=== PATIENT | male | born 2000 | race Caucasian/White ===

== ENCOUNTER → 2023-09-05 | Outpatient (CLI) | payer BC, SELFPAY ==
[2023-09-05 15:16] LABS: Absolute Lymphocyte Count 2.24 X10^3/uL (0.83-4.51); Absolute Neutrophil Count 4.3 X10^3/uL (2.0-7.7); Basophil# 0.04 X10^3/uL; Basophil% 0.6 % (0-1); Eosinophil# 0.08 X10^3/uL; Eosinophils% 1.1 % (0-5); Hematocrit 46.9 % (40-54); Hemoglobin 15.2 g/dL (13.0-16.5); Lymphocyte # 2.24 X10^3/ul (0.83-4.51); Lymphocyte % 31.2 % (19-41); Mean Corp Hgb Conc 32.4 g/dL (32-36); Mean Corpuscular Hgb 28.2 pg (27.0-32.0); Mean Platelet Vol. 8.8 fl (6.2-12.0); NRBC Flagged by Analyzer 0 % (0-5); Neutrophil # 4.29 X10^3/uL (2.7-7.7); Neutrophil % 59.8 % (47-70); Platelet Count 310 K/mm3 (150-450); RBC Distribution Width CV 12.3 % (11.6-14.6); Red Blood Count 5.39 M/mm3 (4.6-6.2); White Blood Count 7.2 K/mm3 (4.4-11.0)
[2023-09-05 15:39] LABS: Erythrocyte Sedimentation Rate 4 mm/hr (0-20)
[2023-09-05 15:50] LABS: ALB/GLOB Ratio 1.1 RATIO (0.9-2.4); AST(SGOT) 10 U/L (15-37); Alanine Aminotransfer ALT/SGPT 21 U/L (16-61); Albumin, Serum 4.3 g/dL (3.2-5.0); Alkaline Phosphatase 83 U/L (45-117); Anion Gap 4 (5-15); BUN 12 mg/dL (7-18); BUN/Creat Ratio 11.7 RATIO (10-20); CRP < 2.90 mg/L (0.0-3.0); Calcium,Total 9.1 mg/dL (8.5-10.1); Chloride 105 mmol/L (98-107); Creatinine, Serum 1.03 mg/dL (0.70-1.30); EST Glomerular Filtration Rate 96 mL/min (>60); Est Glom Filt Rate - Afr Amer 117 mL/min (>60); Globulin 3.8 g/dL (2.2-4.2); Glucose 89 mg/dL (74-106); Potassium 3.9 mmol/L (3.5-5.1); Protein, Total 8.1 g/dL (6.4-8.2); Rheumatoid Factor < 10.0 IU/mL (<15); Sodium Level 138 mmol/L (136-145)
[2023-09-05 17:12] LABS: Hepatitis B Surface Antibody Non-Reactive; Hepatitis B Surface Antigen Non-Reactive (Nonreactive); Hepatitis C Antibody Non-Reactive (Nonreactive)
[2023-09-08 14:08] LABS: CCP IgG Antibodies 5 units (0-19)
== END | disposition home or self-care (01) ==
LOC: MTLAB 14:02
PROVIDERS: PCP Family Medicine; Referring Provider Internal Medicine Rheumatology; Visit Provider Internal Medicine Rheumatology
DX: M06.4 Inflammatory polyarthropathy (principal)
CPT/HCPCS: 36415; 80053; 85025; 85652; 86140; 86200; 86431; 86706; 86803; 87340

== ENCOUNTER → 2023-10-22 | Outpatient (CLI) | payer BC, SELFPAY ==
[2023-10-22 17:39] LABS: Absolute Lymphocyte Count 2.86 X10^3/uL (0.83-4.51); Absolute Neutrophil Count 4.3 X10^3/uL (2.0-7.7); Basophil# 0.06 X10^3/uL; Basophil% 0.8 % (0-1); Eosinophil# 0.07 X10^3/uL; Eosinophils% 0.9 % (0-5); Hematocrit 45.7 % (40-54); Hemoglobin 15.3 g/dL (13.0-16.5); Lymphocyte # 2.86 X10^3/ul (0.83-4.51); Lymphocyte % 36.1 % (19-41); Mean Corp Hgb Conc 33.5 g/dL (32-36); Mean Corpuscular Hgb 28.3 pg (27.0-32.0); Mean Corpuscular Volume 84.6 fL (80-94); Mean Platelet Vol. 8.7 fl (6.2-12.0); Monocyte# 0.63 X10^3/uL; NRBC Flagged by Analyzer 0 % (0-5); Neutrophil # 4.28 X10^3/uL (2.7-7.7); Neutrophil % 53.9 % (47-70); Platelet Count 307 K/mm3 (150-450); RBC Distribution Width CV 12.3 % (11.6-14.6); RBC Distribution Width SD 37.4 fl (35.1-43.9); White Blood Count 7.9 K/mm3 (4.4-11.0)
[2023-10-22 18:01] LABS: ALB/GLOB Ratio 1.2 RATIO (0.9-2.4); AST(SGOT) 23 U/L (15-37); Alanine Aminotransfer ALT/SGPT 24 U/L (16-61); Albumin, Serum 4.3 g/dL (3.2-5.0); Alkaline Phosphatase 73 U/L (45-117); Anion Gap 8 (5-15); BUN 12 mg/dL (7-18); BUN/Creat Ratio 13.1 RATIO (10-20); Calcium,Total 8.8 mg/dL (8.5-10.1); Chloride 101 mmol/L (98-107); Creatinine, Serum 0.92 mg/dL (0.70-1.30); EST Glomerular Filtration Rate 110 mL/min (>60); Est Glom Filt Rate - Afr Amer 133 mL/min (>60); Globulin 3.5 g/dL (2.2-4.2); Glucose 73 mg/dL (74-106); Potassium 3.7 mmol/L (3.5-5.1); Protein, Total 7.8 g/dL (6.4-8.2); Sodium Level 138 mmol/L (136-145)
== END | disposition home or self-care (01) ==
PROVIDERS: PCP Family Medicine; Referring Provider Internal Medicine Rheumatology; Visit Provider Internal Medicine Rheumatology
DX: M06.4 Inflammatory polyarthropathy (principal); Z79.899 Other long term (current) drug therapy
CPT/HCPCS: 36415; 80053; 85025

== ENCOUNTER → 2024-02-16 | Outpatient (CLI) | payer BC, SELFPAY ==
[2024-02-16 17:43] LABS: Absolute Lymphocyte Count 2.73 X10^3/uL (0.83-4.51); Absolute Neutrophil Count 3.6 X10^3/uL (2.0-7.7); Basophil# 0.04 X10^3/uL; Basophil% 0.6 % (0-1); Eosinophil# 0.06 X10^3/uL; Eosinophils% 0.9 % (0-5); Hematocrit 43.6 % (40-54); Hemoglobin 14.8 g/dL (13.0-16.5); Lymphocyte # 2.73 X10^3/ul (0.83-4.51); Lymphocyte % 39.1 % (19-41); Mean Corp Hgb Conc 33.9 g/dL (32-36); Mean Corpuscular Hgb 29.5 pg (27.0-32.0); Mean Corpuscular Volume 86.9 fL (80-94); Mean Platelet Vol. 8.6 fl (6.2-12.0); Monocyte# 0.57 X10^3/uL; Monocyte% 8.2 % (0-10); NRBC Flagged by Analyzer 0 % (0-5); Neutrophil # 3.58 X10^3/uL (2.7-7.7); Neutrophil % 51.1 % (47-70); Platelet Count 287 K/mm3 (150-450); RBC Distribution Width CV 12.7 % (11.6-14.6); RBC Distribution Width SD 40.3 fl (35.1-43.9); Red Blood Count 5.02 M/mm3 (4.6-6.2)
[2024-02-16 17:52] LABS: ALB/GLOB Ratio 1.2 RATIO (0.9-2.4); AST(SGOT) 19 U/L (15-37); Alanine Aminotransfer ALT/SGPT 21 U/L (16-61); Albumin, Serum 4.3 g/dL (3.2-5.0); Alkaline Phosphatase 72 U/L (45-117); Anion Gap 7 (5-15); BUN 14 mg/dL (7-18); BUN/Creat Ratio 14.5 RATIO (10-20); Calcium,Total 9.3 mg/dL (8.5-10.1); Chloride 101 mmol/L (98-107); Creatinine, Serum 0.96 mg/dL (0.70-1.30); EST Glomerular Filtration Rate 104 mL/min (>60); Est Glom Filt Rate - Afr Amer 125 mL/min (>60); Globulin 3.5 g/dL (2.2-4.2); Glucose 81 mg/dL (74-106); Protein, Total 7.8 g/dL (6.4-8.2); Sodium Level 138 mmol/L (136-145)
== END | disposition home or self-care (01) ==
LOC: MTLAB 16:03
PROVIDERS: PCP Family Medicine; Referring Provider Internal Medicine Rheumatology; Visit Provider Internal Medicine Rheumatology
DX: M06.4 Inflammatory polyarthropathy (principal); Z79.899 Other long term (current) drug therapy
CPT/HCPCS: 36415; 80053; 85025

== ENCOUNTER → 2024-04-07 | Outpatient (CLI) | payer BC, SELFPAY ==
[2024-04-07 17:30] LABS: Absolute Lymphocyte Count 2.71 X10^3/uL (0.83-4.51); Absolute Neutrophil Count 3.2 X10^3/uL (2.0-7.7); Basophil# 0.06 X10^3/uL; Basophil% 0.9 % (0-1); Eosinophil# 0.07 X10^3/uL; Eosinophils% 1.1 % (0-5); Hematocrit 42.5 % (40-54); Hemoglobin 14.3 g/dL (13.0-16.5); Lymphocyte # 2.71 X10^3/ul (0.83-4.51); Lymphocyte % 40.9 % (19-41); Mean Corp Hgb Conc 33.6 g/dL (32-36); Mean Corpuscular Hgb 29.4 pg (27.0-32.0); Mean Corpuscular Volume 87.3 fL (80-94); Mean Platelet Vol. 8.7 fl (6.2-12.0); Monocyte# 0.56 X10^3/uL; Monocyte% 8.4 % (0-10); NRBC Flagged by Analyzer 0 % (0-5); Neutrophil # 3.22 X10^3/uL (2.7-7.7); Neutrophil % 48.5 % (47-70); Platelet Count 287 K/mm3 (150-450); RBC Distribution Width CV 12.2 % (11.6-14.6); RBC Distribution Width SD 39.1 fl (35.1-43.9); Red Blood Count 4.87 M/mm3 (4.6-6.2); White Blood Count 6.6 K/mm3 (4.4-11.0)
[2024-04-07 18:00] LABS: ALB/GLOB Ratio 1.3 RATIO (0.9-2.4); AST(SGOT) 13 U/L (15-37); Alanine Aminotransfer ALT/SGPT 20 U/L (16-61); Albumin, Serum 4.3 g/dL (3.2-5.0); Alkaline Phosphatase 67 U/L (45-117); Anion Gap 5 (5-15); BUN 14 mg/dL (7-18); BUN/Creat Ratio 14.3 RATIO (10-20); Calcium,Total 9.2 mg/dL (8.5-10.1); Chloride 103 mmol/L (98-107); Creatinine, Serum 0.98 mg/dL (0.70-1.30); EST Glomerular Filtration Rate 102 mL/min (>60); Est Glom Filt Rate - Afr Amer 123 mL/min (>60); Globulin 3.2 g/dL (2.2-4.2); Glucose 78 mg/dL (74-106); Potassium 3.8 mmol/L (3.5-5.1); Protein, Total 7.5 g/dL (6.4-8.2); Sodium Level 139 mmol/L (136-145)
== END | disposition home or self-care (01) ==
PROVIDERS: PCP Family Medicine; Referring Provider Internal Medicine Rheumatology; Visit Provider Internal Medicine Rheumatology
DX: M06.4 Inflammatory polyarthropathy (principal); Z79.899 Other long term (current) drug therapy
CPT/HCPCS: 36415; 80053; 85025

== ENCOUNTER → 2024-07-06 | Outpatient (CLI) | payer BC, SELFPAY ==
[2024-07-06 17:41] LABS: Absolute Lymphocyte Count 2.21 X10^3/uL (0.83-4.51); Absolute Neutrophil Count 3.4 X10^3/uL (2.0-7.7); Basophil# 0.05 X10^3/uL; Basophil% 0.8 % (0-1); Eosinophil# 0.05 X10^3/uL; Eosinophils% 0.8 % (0-5); Hematocrit 44.1 % (40-54); Hemoglobin 14.9 g/dL (13.0-16.5); Lymphocyte # 2.21 X10^3/ul (0.83-4.51); Lymphocyte % 35.4 % (19-41); Mean Corp Hgb Conc 33.8 g/dL (32-36); Mean Corpuscular Hgb 29.3 pg (27.0-32.0); Mean Corpuscular Volume 86.8 fL (80-94); Mean Platelet Vol. 8.6 fl (6.2-12.0); Monocyte# 0.52 X10^3/uL; Monocyte% 8.3 % (0-10); NRBC Flagged by Analyzer 0 % (0-5); Neutrophil # 3.41 X10^3/uL (2.7-7.7); Neutrophil % 54.5 % (47-70); Platelet Count 282 K/mm3 (150-450); RBC Distribution Width CV 12.7 % (11.6-14.6); RBC Distribution Width SD 39.9 fl (35.1-43.9); Red Blood Count 5.08 M/mm3 (4.6-6.2); White Blood Count 6.3 K/mm3 (4.4-11.0)
[2024-07-06 17:59] LABS: ALB/GLOB Ratio 1.1 RATIO (0.9-2.4); AST(SGOT) 19 U/L (15-37); Alanine Aminotransfer ALT/SGPT 22 U/L (16-61); Albumin, Serum 4.1 g/dL (3.2-5.0); Alkaline Phosphatase 71 U/L (45-117); Anion Gap 6 (5-15); BUN 14 mg/dL (7-18); BUN/Creat Ratio 12.8 RATIO (10-20); Calcium,Total 9.1 mg/dL (8.5-10.1); Chloride 105 mmol/L (98-107); Creatinine, Serum 1.09 mg/dL (0.70-1.30); EST Glomerular Filtration Rate 90 mL/min (>60); Est Glom Filt Rate - Afr Amer 108 mL/min (>60); Globulin 3.6 g/dL (2.2-4.2); Glucose 83 mg/dL (74-106); Potassium 3.8 mmol/L (3.5-5.1); Protein, Total 7.7 g/dL (6.4-8.2); Sodium Level 141 mmol/L (136-145)
== END | disposition home or self-care (01) ==
LOC: MTLAB 15:52
PROVIDERS: PCP Family Medicine; Referring Provider Internal Medicine Rheumatology; Visit Provider Internal Medicine Rheumatology
DX: M06.4 Inflammatory polyarthropathy (principal); Z79.899 Other long term (current) drug therapy
CPT/HCPCS: 36415; 80053; 85025

== ENCOUNTER → 2024-10-01 | Outpatient (CLI) | payer BC, SELFPAY ==
[2024-10-01 17:32] LABS: Absolute Lymphocyte Count 2.44 X10^3/uL (0.83-4.51); Absolute Neutrophil Count 3.2 X10^3/uL (2.0-7.7); Basophil# 0.03 X10^3/uL; Basophil% 0.5 % (0-1); Eosinophil# 0.08 X10^3/uL; Eosinophils% 1.3 % (0-5); Hematocrit 43.4 % (40-54); Hemoglobin 14.3 g/dL (13.0-16.5); Lymphocyte # 2.44 X10^3/ul (0.83-4.51); Lymphocyte % 38.8 % (19-41); Mean Corp Hgb Conc 32.9 g/dL (32-36); Mean Corpuscular Hgb 28.9 pg (27.0-32.0); Mean Corpuscular Volume 87.9 fL (80-94); Mean Platelet Vol. 9.2 fl (6.2-12.0); Monocyte# 0.58 X10^3/uL; Monocyte% 9.2 % (0-10); NRBC Flagged by Analyzer 0 % (0-5); Neutrophil # 3.15 X10^3/uL (2.7-7.7); Platelet Count 266 K/mm3 (150-450); RBC Distribution Width CV 12.4 % (11.6-14.6); RBC Distribution Width SD 39.8 fl (35.1-43.9); Red Blood Count 4.94 M/mm3 (4.6-6.2); White Blood Count 6.3 K/mm3 (4.4-11.0)
[2024-10-01 17:57] LABS: ALB/GLOB Ratio 1.2 RATIO (0.9-2.4); AST(SGOT) 11 U/L (15-37); Alanine Aminotransfer ALT/SGPT 21 U/L (16-61); Albumin, Serum 4.2 g/dL (3.2-5.0); Alkaline Phosphatase 68 U/L (45-117); Anion Gap 4 (5-15); BUN 11 mg/dL (7-18); BUN/Creat Ratio 10.8 RATIO (10-20); Calcium,Total 9.3 mg/dL (8.5-10.1); Chloride 104 mmol/L (98-107); Creatinine, Serum 1.02 mg/dL (0.70-1.30); EST Glomerular Filtration Rate 97 mL/min (>60); Est Glom Filt Rate - Afr Amer 117 mL/min (>60); Globulin 3.4 g/dL (2.2-4.2); Glucose 79 mg/dL (74-106); Potassium 3.9 mmol/L (3.5-5.1); Protein, Total 7.6 g/dL (6.4-8.2); Sodium Level 137 mmol/L (136-145)
== END | disposition home or self-care (01) ==
LOC: MTLAB 15:23
PROVIDERS: PCP Family Medicine; Referring Provider Internal Medicine Rheumatology; Visit Provider Internal Medicine Rheumatology
DX: M06.4 Inflammatory polyarthropathy (principal); Z79.899 Other long term (current) drug therapy
CPT/HCPCS: 36415; 80053; 85025

== ENCOUNTER → 2024-12-27 | Outpatient (CLI) | payer BC, SELFPAY ==
[2024-12-27 15:34] LABS: Absolute Lymphocyte Count 2.12 X10^3/uL (0.83-4.51); Absolute Neutrophil Count 4.7 X10^3/uL (2.0-7.7); Basophil# 0.05 X10^3/uL; Basophil% 0.7 % (0-1); Eosinophil# 0.06 X10^3/uL; Eosinophils% 0.8 % (0-5); Hematocrit 42.6 % (40-54); Hemoglobin 14.7 g/dL (13.0-16.5); Lymphocyte # 2.12 X10^3/ul (0.83-4.51); Lymphocyte % 27.8 % (19-41); Mean Corp Hgb Conc 34.5 g/dL (32-36); Mean Corpuscular Hgb 29.9 pg (27.0-32.0); Mean Corpuscular Volume 86.6 fL (80-94); Mean Platelet Vol. 8.5 fl (6.2-12.0); Monocyte# 0.67 X10^3/uL; Monocyte% 8.8 % (0-10); NRBC Flagged by Analyzer 0 % (0-5); Neutrophil % 61.5 % (47-70); Platelet Count 323 K/mm3 (150-450); RBC Distribution Width CV 12.4 % (11.6-14.6); RBC Distribution Width SD 39.3 fl (35.1-43.9); Red Blood Count 4.92 M/mm3 (4.6-6.2); White Blood Count 7.6 K/mm3 (4.4-11.0)
[2024-12-27 16:12] LABS: ALB/GLOB Ratio 1.2 RATIO (0.9-2.4); AST(SGOT) 30 U/L (15-37); Alanine Aminotransfer ALT/SGPT 42 U/L (16-61); Albumin, Serum 4.2 g/dL (3.2-5.0); Alkaline Phosphatase 84 U/L (45-117); Anion Gap 8 (5-15); BUN 10 mg/dL (7-18); BUN/Creat Ratio 9.3 RATIO (10-20); Calcium,Total 9.2 mg/dL (8.5-10.1); Chloride 102 mmol/L (98-107); Creatinine, Serum 1.08 mg/dL (0.70-1.30); EST Glomerular Filtration Rate 90 mL/min (>60); Est Glom Filt Rate - Afr Amer 109 mL/min (>60); Globulin 3.6 g/dL (2.2-4.2); Glucose 90 mg/dL (74-106); Potassium 3.8 mmol/L (3.5-5.1); Protein, Total 7.8 g/dL (6.4-8.2); Sodium Level 138 mmol/L (136-145)
== END | disposition home or self-care (01) ==
PROVIDERS: PCP Family Medicine; Referring Provider Internal Medicine Rheumatology; Visit Provider Internal Medicine Rheumatology
DX: M06.4 Inflammatory polyarthropathy (principal); Z79.899 Other long term (current) drug therapy
CPT/HCPCS: 36415; 80053; 85025

== ENCOUNTER → 2025-03-25 | Outpatient (CLI) | payer BC, SELFPAY ==
[2025-03-25 17:49] LABS: Absolute Neutrophil Count 3.2 X10^3/uL (2.0-7.7); Basophil# 0.05 X10^3/uL; Basophil% 0.8 % (0-1); Eosinophil# 0.07 X10^3/uL; Eosinophils% 1.1 % (0-5); Hematocrit 42.3 % (40-54); Hemoglobin 14.5 g/dL (13.0-16.5); Lymphocyte % 40.1 % (19-41); Mean Corp Hgb Conc 34.3 g/dL (32-36); Mean Corpuscular Volume 87.4 fL (80-94); Mean Platelet Vol. 9.1 fl (6.2-12.0); Monocyte% 9.2 % (0-10); NRBC Flagged by Analyzer 0 % (0-5); Neutrophil # 3.16 X10^3/uL (2.7-7.7); Neutrophil % 48.6 % (47-70); Platelet Count 284 K/mm3 (150-450); RBC Distribution Width CV 12.2 % (11.6-14.6); RBC Distribution Width SD 38.8 fl (35.1-43.9); Red Blood Count 4.84 M/mm3 (4.6-6.2); White Blood Count 6.5 K/mm3 (4.4-11.0)
[2025-03-25 18:15] LABS: ALB/GLOB Ratio 1.8 RATIO (0.9-2.4); AST(SGOT) 20 U/L (<=37); Alanine Aminotransfer ALT/SGPT 20 U/L (<=46); Albumin, Serum 4.8 g/dL (3.5-5.0); Alkaline Phosphatase 67 U/L (40-129); Anion Gap 12 (5-15); BUN 14 mg/dL (4-19); BUN/Creat Ratio 13.1 RATIO (10-20); Calcium,Total 9.7 mg/dL (7.6-11.0); Carbon Dioxide 27.3 mmol/L (21.0-32.0); Chloride 101 mmol/L (98-108); Creatinine, Serum 1.08 mg/dL (0.70-1.20); EST Glomerular Filtration Rate 99 (>60); Globulin 2.7 g/dL (2.2-4.2); Glucose 68 mg/dL (70-99); Protein, Total 7.4 g/dL (5.9-8.4); Sodium Level 141 mmol/L (133-145); Total Bilirubin 0.47 mg/dL (0.00-1.30)
== END | disposition home or self-care (01) ==
LOC: MTLAB 15:20
PROVIDERS: PCP Family Medicine; Referring Provider Internal Medicine Rheumatology; Visit Provider Internal Medicine Rheumatology
DX: M06.4 Inflammatory polyarthropathy (principal); Z79.899 Other long term (current) drug therapy
CPT/HCPCS: 36415; 80053; 85025

== ENCOUNTER → 2025-06-21 | Outpatient (CLI) | payer BC, SELFPAY ==
[2025-06-21 18:13] LABS: Hematocrit 42.9 % (40-54); Hemoglobin 14.7 g/dL (13.0-16.5); Immature Granulocytes Count 0.010 X10^3/uL (0.0-0.0); Mean Corp Hgb Conc 34.3 g/dL (32-36); Mean Corpuscular Volume 86.7 fL (80-94); Mean Platelet Vol. 9.1 fl (6.2-12.0); NRBC Flagged by Analyzer 0 % (0-5); Platelet Count 292 K/mm3 (150-450); RBC Distribution Width CV 12.4 % (11.6-14.6); RBC Distribution Width SD 39.5 fl (35.1-43.9); Red Blood Count 4.95 M/mm3 (4.6-6.2); White Blood Count 6.2 K/mm3 (4.4-11.0)
[2025-06-21 18:48] LABS: AST(SGOT) 30 U/L (<=37); Alanine Aminotransfer ALT/SGPT 40 U/L (<=46); Albumin, Serum 4.6 g/dL (3.5-5.0); Alkaline Phosphatase 66 U/L (40-129); Anion Gap 12 (5-15); BUN 12 mg/dL (4-19); BUN/Creat Ratio 11.1 RATIO (10-20); Calcium,Total 9.6 mg/dL (7.6-11.0); Carbon Dioxide 27.0 mmol/L (21.0-32.0); Chloride 102 mmol/L (98-108); Globulin 2.7 g/dL (2.2-4.2); Glucose 69 mg/dL (70-99); Potassium 4.3 mmol/L (3.3-5.1)
== END | disposition home or self-care (01) ==
LOC: MTLAB 14:26
PROVIDERS: PCP Family Medicine; Referring Provider Internal Medicine Rheumatology; Visit Provider Internal Medicine Rheumatology
DX: M06.4 Inflammatory polyarthropathy (principal); Z79.899 Other long term (current) drug therapy
CPT/HCPCS: 36415; 80053; 85025

== ENCOUNTER → 2025-09-16 | Outpatient (CLI) | payer BC, SELFPAY ==
--- OUTSIDE RECORDS SUMMARY | 2025-09-16 16:22 | XMS RPT_ITS | CCD ---
Author Organization [facility] Care Team Providers Care Angiographer Name Role Phone SHANICE SHARP MD Attending Unavailable SHANICE SHARP MD Primary Care Unavailable SHANICE SHARP MD Admitting Unavailable Nadine ART Consulting Unavailable PROVIDER, UNKNOWN Consulting Unavailable PROVIDER, UNKNOWN Consulting Unavailable PROVIDER, UNKNOWN Consulting Unavailable COCO WELLS Consulting Unavailable GINA BRADSHAW DO Attending Unavailable ESCGINA LOWRY DO Primary Care Unavailable GINA BRADSHAW DO Admitting Unavailable PROVIDER, UNKNOWN Consulting Unavailable PROVIDER, UNKNOWN Consulting Unavailable PROVIDER, UNKNOWN Consulting Unavailable Fiona JALLOH, Dr. Vasquez Primary Care Provider [phone] Dr. Shanice Sharp MD Attending Provider Dr. Shanice Sharp MD Referring Provider Shanice Sharp Attending Unavailable Shanice Sharp Referring Unavailable Christina Art Primary Care Unavailable Shanice Sharp Attending Unavailable Shanice Sharp Referring Unavailable Christina Art Primary Care Unavailable Shanice Sharp Attending Unavailable Shanice Sharp Referring Unavailable Christina Art Primary Care Unavailable Shanice Sharp Attending Unavailable Shanice Sharp Referring Unavailable Christina Art Primary Care Unavailable Shanice Sharp Attending Unavailable Shanice Sharp Referring Unavailable Christina Art Primary Care Unavailable Problems Problem Classification Problem Date Documented Da te Episodic/Chronic Other aftercare (3 sources) Other predatory animal exterminator (current) drug therapy; Translations: [Other predatory animal exterminator (current) drug therapy] Onset: 12-22-2023 Episodic Rheumatoid arthritis and related disease (2 sources) Inflammatory polyarthropathy; Translations: [Inflammatory polyarthropathy] Onset: 12-22-2023 Chronic Results Test Name Value Interpretation Reference Range Facility Absolute lymphocyte countOrd ered By: Shanice Sharp on 06-21-2025 Lymphocytes Auto (Unsp spec) [#/Vol] 2.30 10*3/uL 0.83-4.51 [facility] Absolute neutrophil countOrd ered By: Shanice Sharp on 06-21-2025 Neutrophils (Bld) [#/Vol] 3.3 10*3/uL 2.0-7.7 [facility] Anion gap in Serum or Plasma Ordered By: Shanice Sharp on 06-21-2025 Anion gap [Moles/Vol] 12 mmol/L 5- [facility] Automated lymphocyte count a s percentage of total leukocytesOrdered By: Shanice Sharp on 06-21-2025 Lymphocytes/100 WBC Auto (Unsp spec) 37.2 % - [facility] BUN/creatinine ratioOrdered By: Shanicemert Sharp on 06-21-2025 Urea nitrogen/Creatinine [Mass ratio] 11.1 mg/mg 10- [facility] Basophil percentageOrdered B y: Shanice Sharp on 06-21-2025 Basophils/100 WBC (Bld) 0.6 % 0-1 [facility] Bilirubin, totalOrdered By: Shanice Sharp on 06-21-2025 Bilirubin [Mass/Vol] 0.51 mg/dL 0.00-1.30 [facility] CBC W/Diff, Automatedon 06-01 Absolute Lymph 2.30 X10 3/uL Normal 0.83-4.51 [facility] Comment on above: Performed By: #### L 500.4050, L100.0100 #### [facility] [address] [place], [address] Absolute Neut 3.3 X10 3/uL Normal 2.0-7.7 [facility] Comment on above: Performed By: #### L 500.4050, L100.0100 #### [facility] [address] [place], [address] Basophils/100 WBC (Bld) 0.6 % Normal 0-1 [facility] Comment on above: Performed By: #### L 500.4050, L100.0100 #### [facility] [address] [place], [address] Eosinophils/100 WBC (Bld) 0.6 % Normal 0-5 [facility] Comment on above: Performed By: #### L 500.4050, L100.0100 #### [facility] [address] [place], [address] Erythrocyte distribution width (RBC) [Ratio] 12.4 % Normal 11.6-14.6 [facility] Comment on above: Performed By: #### L 500.4050, L100.0100 #### [facility] [address] [place], [address] Hematocrit (Bld) [Volume fraction] 42.9 % Normal 40-54 [facility] Comment on above: Performed By: #### L 500.4050, L100.0100 #### [facility] [address] [place], [address] Hemoglobin (Bld) [Mass/Vol] 14.7 g/dL Normal 13.0-16.5 [facility] Comment on above: Performed By: #### L 500.4050, L100.0100 #### [facility] [address] [place], [address] IG% 0.200 Normal 0.0-0.9 [facility] Comment on above: Result Comment: IG% - Immature Granulocytes (promyelocytes, myelocytes and metamyelocytes) > 1% indicates that a LEFT SHIFT is Present. Performed By: #### L 500.4050, L100.0100 #### [facility] [address] [place], [address] Lymphocytes/100 WBC (Bld) 37.2 % Normal 19-41 [facility] Comment on above: Performed By: #### L 500.4050, L100.0100 #### [facility] [address] [place], [address] MCH (RBC) [Entitic mass] 29.7 pg Normal 27.0-32.0 [facility] Comment on above: Performed By: #### L 500.4050, L100.0100 #### [facility] [address] [place], [address] MCHC (RBC) [Mass/Vol] 34.3 g/dL Normal 32-36 [facility] Comment on above: Performed By: #### L 500.4050, L100.0100 #### [facility] [address] [place], [address] MCV (RBC) [Entitic vol] 86.7 fL Normal 80-94 [facility] Comment on above: Performed By: #### L 500.4050, L100.0100 #### [facility] [address] [place], [address] Monocytes/100 WBC (Bld) 7.6 % Normal 0-10 [facility] Comment on above: Performed By: #### L 500.4050, L100.0100 #### [facility] [address] [place], [address] Neutrophils/100 WBC (Bld) 53.8 % Normal 47-70 [facility] Comment on above: Performed By: #### L 500.4050, L100.0100 #### [facility] [address] [place], [address] Nucleated RBC (Bld) [#/Vol] 0 10*3/uL Normal 0-5 [facility] Comment on above: Performed By: #### L 500.4050, L100.0100 #### [facility] [address] [place], [address] Platelet mean volume (Bld) [Entitic vol] 9.1 fL Normal 6.2-12.0 [facility] Comment on above: Performed By: #### L 500.4050, L100.0100 #### [facility] [address] [place], [address] Platelets (Bld) [#/Vol] 292 10*3/uL Normal 150-450 [facility] Comment on above: Performed By: #### L 500.4050, L100.0100 #### [facility] [address] [place], [address] RBC (Bld) [#/Vol] 4.95 10*6/uL Normal 4.6-6.2 [facility] Comment on above: Performed By: #### L 500.4050, L100.0100 #### [facility] [address] [place], [address] RDW SD 39.5 fl Normal 35.1-43.9 [facility] Comment on above: Performed By: #### L 500.4050, L100.0100 #### [facility] [address] [place], [address] WBC (Bld) [#/Vol] 6.2 10*3/uL Normal 4.4-11.0 [facility] Comment on above: Performed By: #### L 500.4050, L100.0100 #### [facility] [address] [place], [address] Carbon dioxide, total [Moles /volume] in Central venous bloodOrdered By: Shanice Sharp on 06-21-2025 CO2 [Moles/Vol] 27.0 mmol/L 21.0-32.0 [facility] Chloride assayOrdered By: Douglas Sharp on 06-21-2025 Chloride [Moles/Vol] 102 mmol/L 98-108 [facility] Comprehensive Metabolic Prof ilon 06-21-2025 Albumin [Mass/Vol] 4.6 g/dL Normal 3.5-5.0 [facility] Comment on above: Performed By: #### L 500.4050, L100.0100 #### [facility] [address] [place], [address] Albumin/Globulin [Mass ratio] 1.7 {ratio} Normal 0.9-2.4 [facility] Comment on above: Performed By: #### L 500.4050, L100.0100 #### [facility] [address] [place], [address] ALK PHOS 66 U/L Normal 40-129 [facility] Comment on above: Performed By: #### L 500.4050, L100.0100 #### [facility] [address] [place], [address] ALT [Catalytic activity/Vol] 40 U/L Normal <=46 [facility] Comment on above: Performed By: #### L 500.4050, L100.0100 #### [facility] [address] [place], [address] AST [Catalytic activity/Vol] 30 U/L Normal <=37 [facility] Comment on above: Performed By: #### L 500.4050, L100.0100 #### [facility] [address] [place], [address] Bilirubin [Mass/Vol] 0.51 mg/dL Normal 0.00-1.30 [facility] Comment on above: Performed By: #### L 500.4050, L100.0100 #### [facility] [address] [place], [address] BUN/CRE 11.1 RATIO Normal 10-20 [facility] Comment on above: Performed By: #### L 500.4050, L100.0100 #### [facility] [address] [place], [address] Calcium [Mass/Vol] 9.6 mg/dL Normal 7.6-11.0 [facility] Comment on above: Performed By: #### L 500.4050, L100.0100 #### [facility] [address] [place], [address] Chloride [Moles/Vol] 102 mmol/L Normal 98-108 [facility] Comment on above: Performed By: #### L 500.4050, L100.0100 #### [facility] [address] [place], [address] CO2 [Moles/Vol] 27.0 mmol/L Normal 21.0-32.0 [facility] Comment on above: Performed By: #### L 500.4050, L100.0100 #### [facility] [address] [place], [address] Creatinine [Mass/Vol] 1.11 mg/dL Normal 0.70-1.20 [facility] Comment on above: Performed By: #### L 500.4050, L100.0100 #### [facility] [address] [place], [address] GAP 12 Normal 5-15 [facility] Comment on above: Performed By: #### L 500.4050, L100.0100 #### [facility] [address] [place], [address] GFR/1.73 sq M.predicted among non-blacks MDRD (S/P/Bld) [Vol rate/Area] 96 mL/min/{1.73_m2} Normal >60 [facility] Comment on above: Result Comment: mL/m in/1.73m2 CKD-EPI Creatinine Equation (2020) Performed By: #### L 500.4050, L100.0100 #### [facility] [address] [place], [address] Globulin (S) [Mass/Vol] 2.7 g/dL Normal 2.2-4.2 [facility] Comment on above: Performed By: #### L 500.4050, L100.0100 #### [facility] [address] [place], [address] Glucose [Mass/Vol] 69 mg/dL Low 70-99 [facility] Comment on above: Performed By: #### L 500.4050, L100.0100 #### [facility] [address] [place], [address] Potassium [Moles/Vol] 4.3 mmol/L Normal 3.3-5.1 [facility] Comment on above: Performed By: #### L 500.4050, L100.0100 #### [facility] [address] [place], [address] Sodium [Moles/Vol] 140 mmol/L Normal 133-145 [facility] Comment on above: Performed By: #### L 500.4050, L100.0100 #### [facility] [address] [place], [address] T PROT 7.3 g/dL Normal 5.9-8.4 [facility] Comment on above: Performed By: #### L 500.4050, L100.0100 #### [facility] [address] [place], [address] Urea nitrogen [Mass/Vol] 12 mg/dL Normal 4-19 [facility] Comment on above: Performed By: #### L 500.4050, L100.0100 #### [facility] [address] [place], [address] Eosinophil percentageOrdered By: Shanice Sharp on 06-21-2025 Eosinophils/100 WBC (Bld) 0.6 % 0-5 [facility] Erythrocyte distribution wid th ratioOrdered By: Shanice Sharp on 06-21-2025 Erythrocyte distribution width (RBC) [Ratio] 12.4 % 11.6-14.6 [facility] Erythrocyte distribution wid th standard deviationOrdered By: Shanice Sharp on 06-21-2025 Erythrocyte distribution width (RBC) [Ratio] 39.5 fl 35.1-43.9 [facility] Glomerular filtration rate ( GFR) estimation/1.73 sq m using serum, plasma, or whole bOrdered By: Shanice Sharp on 06-21-2025 GFR/1.73 sq M.predicted among non-blacks MDRD (S/P/Bld) [Vol rate/Area] 96 mL/min/{1.73_m2} >60 [facility] Comment on above: mL/min/1.73m2 CKD-EP I Creatinine Equation (2020) Hematocrit Auto (Bld) [Volum e fraction]Ordered By: Shanice Sharp on 06-21-2025 Hematocrit (Bld) [Volume fraction] 42.9 % 40-54 [facility] Hemoglobin measurementOrdere d By: Shanice Sharp on 06-21-2025 Hemoglobin (Bld) [Mass/Vol] 14.7 g/dL 13.0-16.5 [facility] Immature granulocytes/100 WB C Auto (Bld)Ordered By: Shanice Sharp on 06-21-2025 Immature granulocytes/100 WBC (Bld) 0.200 % 0.0-0.9 [facility] Comment on above: IG% - Immature Granu locytes (promyelocytes, myelocytes and metamyelocytes) > 1% indicates that a LEFT SHIFT is Present. Laboratory - Chemistry and C hemistry - challengeOrdered By: Shanice Sharp on 06-21-2025 AST [Catalytic activity/Vol] 30 U/L <38 [facility] MCV (mean corpuscular volume ) determinationOrdered By: Shanice Sharp on 06-21-2025 MCV (RBC) [Entitic vol] 86.7 fL 80-94 [facility] Mean corpuscular hemoglobin (MCH) determinationOrdered By: Shanice Sharp on 06-21-2025 MCH (RBC) [Entitic mass] 29.7 pg 27.0-32.0 [facility] Mean corpuscular hemoglobin concentration (MCHC) determinationOrdered By: Shanice Sharp on 06-21-2025 MCHC (RBC) [Mass/Vol] 34.3 g/dL 32-36 [facility] Mean platelet volume determi nationOrdered By: Shanice Sharp on 06-21-2025 Platelet mean volume (Bld) [Entitic vol] 9.1 fL 6.2-12.0 [facility] Monocyte percentageOrdered B y: Shanice Sharp on 06-21-2025 Monocytes/100 WBC (Bld) 7.6 % 0-10 [facility] Neutrophil percentageOrdered By: Shanice Sharp on 06-21-2025 Neutrophils/100 WBC (Bld) 53.8 % 47-70 [facility] Nucleated red blood cell per centageOrdered By: Shanice Sharp on 06-21-2025 Nucleated RBC/100 WBC (Bld) [Ratio] 0 % 0-5 [facility] Platelet countOrdered By: Douglas Sharp on 06-21-2025 Platelets (Bld) [#/Vol] 292 10*3/uL 150-450 [facility] Potassium measurement (mass/ volume)Ordered By: Shanice Sharp on 06-21-2025 Potassium (Unsp spec) [Mass/Vol] 4.3 mmol/L 3.3-5.1 [facility] RBC Auto (Bld) [#/Vol]Ordere d By: Shanice Sharp on 06-21-2025 RBC (Bld) [#/Vol] 4.95 10*6/uL 4.6-6.2 [facility] Serum creatinine measurement (mass/volume)Ordered By: Shanice Sharp on 06-21-2025 Creatinine [Mass/Vol] 1.11 mg/dL 0.70-1.20 [facility] Serum globulin measurementOr dered By: Shanice Sharp on 06-21-2025 Globulin (S) [Mass/Vol] 2.7 g/dL 2.2-4.2 [facility] Serum glucose measurement (m ass/volume)Ordered By: Shanice Sharp on 06-21-2025 Glucose [Mass/Vol] 69 mg/dL Low 70-99 [facility] Serum or plasma alanine wolfe otransferase (ALT) measurementOrdered By: Shanice Sharp on 06-21-2025 ALT [Catalytic activity/Vol] 40 U/L <47 [facility] Serum or plasma albumin rob urement (mass/volume)Ordered By: Shanice Sharp on 06-21-2025 Albumin [Mass/Vol] 4.6 g/dL 3.5-5.0 [facility] Serum or plasma albumin/glob ulin mass ratioOrdered By: Shanice Sharp on 06-21-2025 Albumin/Globulin [Mass ratio] 1.7 {ratio} 0.9-2.4 [facility] Serum or plasma alkaline starla sphatase measurementOrdered By: Shanice Sharp on 06-21-2025 ALP [Catalytic activity/Vol] 66 U/L 40-129 [facility] Serum or plasma calcium rob urement (mass/volume)Ordered By: Shanice Sharp on 06-21-2025 Calcium [Mass/Vol] 9.6 mg/dL 7.6-11.0 [facility] Serum or plasma urea nitroge n measurement (mass/volume)Ordered By: Shanice Sharp on 06-21-2025 Urea nitrogen [Mass/Vol] 12 mg/dL 4-19 [facility] Sodium levelOrdered By: Bhaskar Sharp on 06-21-2025 Sodium [Moles/Vol] 140 mmol/L 133-145 [facility] Total proteinOrdered By: Awa Sharp on 06-21-2025 Protein [Mass/Vol] 7.3 g/dL 5.9-8.4 [facility] White blood cell (WBC) count Ordered By: Shanice Sharp on 06-21-2025 WBC (Bld) [#/Vol] 6.2 10*3/uL 4.4-11.0 [facility] Absolute lymphocyte countOrd ered By: Shanice Sharp on 03-25-2025 Lymphocytes Auto (Unsp spec) [#/Vol] 2.60 10*3/uL 0.83-4.51 [facility] Absolute neutrophil countOrd ered By: Shanice Sharp on 03-25-2025 Neutrophils (Bld) [#/Vol] 3.2 10*3/uL 2.0-7.7 [facility] Anion gap in Serum or Plasma Ordered By: Shanice Sharp on 03-25-2025 Anion gap [Moles/Vol] 12 mmol/L 5- [facility] Automated lymphocyte count a s percentage of total leukocytesOrdered By: Shanice Sharp on 03-25-2025 Lymphocytes/100 WBC Auto (Unsp spec) 40.1 % [facility] BUN/creatinine ratioOrdered By: Shanice Sharp on 03-25-2025 Urea nitrogen/Creatinine [Mass ratio] 13.1 mg/mg 10- [facility] Basophil percentageOrdered B y: Shanice Sharp on 03-25-2025 Basophils/100 WBC (Bld) 0.8 % 0-1 [facility] Bilirubin, totalOrdered By: Shanice Sharp on 03-25-2025 Bilirubin [Mass/Vol] 0.47 mg/dL 0.00-1.30 [facility] CBC W/Diff, Automatedon 03-02 Absolute Lymph 2.60 X10 3/uL Normal 0.83-4.51 [facility] Comment on above: Performed By: #### L 100.0100, L500.4050 #### [facility] [address] [place], [address] Absolute Neut 3.2 X10 3/uL Normal 2.0-7.7 [facility] Comment on above: Performed By: #### L 100.0100, L500.4050 #### [facility] [address] [place], [address] Basophils/100 WBC (Bld) 0.8 % Normal 0-1 [facility] Comment on above: Performed By: #### L 100.0100, L500.4050 #### [facility] [address] [place], [address] Eosinophils/100 WBC (Bld) 1.1 % Normal 0-5 [facility] Comment on above: Performed By: #### L 100.0100, L500.4050 #### [facility] [address] [place], [address] Erythrocyte distribution width (RBC) [Ratio] 12.2 % Normal 11.6-14.6 [facility] Comment on above: Performed By: #### L 100.0100, L500.4050 #### [facility] [address] [place], [address] Hematocrit (Bld) [Volume fraction] 42.3 % Normal 40-54 [facility] Comment on above: Performed By: #### L 100.0100, L500.4050 #### [facility] [address] [place], [address] Hemoglobin (Bld) [Mass/Vol] 14.5 g/dL Normal 13.0-16.5 [facility] Comment on above: Performed By: #### L 100.0100, L500.4050 #### [facility] [address] [place], [address] IG% 0.200 Normal 0.0-0.9 [facility] Comment on above: Result Comment: IG% - Immature Granulocytes (promyelocytes, myelocytes and metamyelocytes) > 1% indicates that a LEFT SHIFT is Present. Performed By: #### L 100.0100, L500.4050 #### [facility] [address] [place], [address] Lymphocytes/100 WBC (Bld) 40.1 % Normal 19-41 [facility] Comment on above: Performed By: #### L 100.0100, L500.4050 #### [facility] [address] [place], [address] MCH (RBC) [Entitic mass] 30.0 pg Normal 27.0-32.0 [facility] Comment on above: Performed By: #### L 100.0100, L500.4050 #### [facility] [address] [place], [address] MCHC (RBC) [Mass/Vol] 34.3 g/dL Normal 32-36 [facility] Comment on above: Performed By: #### L 100.0100, L500.4050 #### [facility] [address] [place], [address] MCV (RBC) [Entitic vol] 87.4 fL Normal 80-94 [facility] Comment on above: Performed By: #### L 100.0100, L500.4050 #### [facility] [address] [place], [address] Monocytes/100 WBC (Bld) 9.2 % Normal 0-10 [facility] Comment on above: Performed By: #### L 100.0100, L500.4050 #### [facility] [address] [place], [address] Neutrophils/100 WBC (Bld) 48.6 % Normal 47-70 [facility] Comment on above: Performed By: #### L 100.0100, L500.4050 #### [facility] [address] [place], [address] Nucleated RBC (Bld) [#/Vol] 0 10*3/uL Normal 0-5 [facility] Comment on above: Performed By: #### L 100.0100, L500.4050 #### [facility] [address] [place], [address] Platelet mean volume (Bld) [Entitic vol] 9.1 fL Normal 6.2-12.0 [facility] Comment on above: Performed By: #### L 100.0100, L500.4050 #### [facility] [address] [place], [address] Platelets (Bld) [#/Vol] 284 10*3/uL Normal 150-450 [facility] Comment on above: Performed By: #### L 100.0100, L500.4050 #### [facility] [address] [place], [address] RBC (Bld) [#/Vol] 4.84 10*6/uL Normal 4.6-6.2 [facility] Comment on above: Performed By: #### L 100.0100, L500.4050 #### [facility] [address] [place], [address] RDW SD 38.8 fl Normal 35.1-43.9 [facility] Comment on above: Performed By: #### L 100.0100, L500.4050 #### [facility] [address] [place], [address] WBC (Bld) [#/Vol] 6.5 10*3/uL Normal 4.4-11.0 [facility] Comment on above: Performed By: #### L 100.0100, L500.4050 #### [facility] [address] [place], [address] Carbon dioxide, total [Moles /volume] in Central venous bloodOrdered By: Shanice Sharp on 03-25-2025 CO2 [Moles/Vol] 27.3 mmol/L 21.0-32.0 [facility] Chloride assayOrdered By: Douglas Sharp on 03-25-2025 Chloride [Moles/Vol] 101 mmol/L 98-108 [facility] Comprehensive Metabolic Prof ilon 03-25-2025 Albumin [Mass/Vol] 4.8 g/dL Normal 3.5-5.0 [facility] Comment on above: Performed By: #### L 100.0100, L500.4050 #### [facility] [address] [place], [address] Albumin/Globulin [Mass ratio] 1.8 {ratio} Normal 0.9-2.4 [facility] Comment on above: Performed By: #### L 100.0100, L500.4050 #### [facility] [address] [place], [address] ALK PHOS 67 U/L Normal 40-129 [facility] Comment on above: Performed By: #### L 100.0100, L500.4050 #### [facility] [address] [place], [address] ALT [Catalytic activity/Vol] 20 U/L Normal <=46 [facility] Comment on above: Performed By: #### L 100.0100, L500.4050 #### [facility] [address] [place], [address] AST [Catalytic activity/Vol] 20 U/L Normal <=37 [facility] Comment on above: Performed By: #### L 100.0100, L500.4050 #### [facility] [address] [place], [address] Bilirubin [Mass/Vol] 0.47 mg/dL Normal 0.00-1.30 [facility] Comment on above: Performed By: #### L 100.0100, L500.4050 #### [facility] [address] [place], [address] BUN/CRE 13.1 RATIO Normal 10-20 [facility] Comment on above: Performed By: #### L 100.0100, L500.4050 #### [facility] [address] [place], [address] Calcium [Mass/Vol] 9.7 mg/dL Normal 7.6-11.0 [facility] Comment on above: Performed By: #### L 100.0100, L500.4050 #### [facility] [address] [place], [address] Chloride [Moles/Vol] 101 mmol/L Normal 98-108 [facility] Comment on above: Performed By: #### L 100.0100, L500.4050 #### [facility] [address] [place], [address] CO2 [Moles/Vol] 27.3 mmol/L Normal 21.0-32.0 [facility] Comment on above: Performed By: #### L 100.0100, L500.4050 #### [facility] [address] [place], [address] Creatinine [Mass/Vol] 1.08 mg/dL Normal 0.70-1.20 [facility] Comment on above: Performed By: #### L 100.0100, L500.4050 #### [facility] [address] [place], [address] GAP 12 Normal 5-15 [facility] Comment on above: Performed By: #### L 100.0100, L500.4050 #### [facility] [address] [place], [address] GFR/1.73 sq M.predicted among non-blacks MDRD (S/P/Bld) [Vol rate/Area] 99 mL/min/{1.73_m2} Normal >60 [facility] Comment on above: Result Comment: mL/m in/1.73m2 CKD-EPI Creatinine Equation (2020) Performed By: #### L 100.0100, L500.4050 #### [facility] [address] [place], [address] Globulin (S) [Mass/Vol] 2.7 g/dL Normal 2.2-4.2 [facility] Comment on above: Performed By: #### L 100.0100, L500.4050 #### [facility] [address] [place], [address] Glucose [Mass/Vol] 68 mg/dL Low 70-99 [facility] Comment on above: Performed By: #### L 100.0100, L500.4050 #### [facility] [address] [place], [address] Potassium [Moles/Vol] 4.0 mmol/L Normal 3.3-5.1 [facility] Comment on above: Performed By: #### L 100.0100, L500.4050 #### [facility] [address] [place], [address] Sodium [Moles/Vol] 141 mmol/L Normal 133-145 [facility] Comment on above: Performed By: #### L 100.0100, L500.4050 #### [facility] [address] [place], [address] T PROT 7.4 g/dL Normal 5.9-8.4 [facility] Comment on above: Performed By: #### L 100.0100, L500.4050 #### [facility] [address] [place], [address] Urea nitrogen [Mass/Vol] 14 mg/dL Normal 4-19 [facility] Comment on above: Performed By: #### L 100.0100, L500.4050 #### [facility] [address] [place], [address] Eosinophil percentageOrdered By: Shanice Sharp on 03-25-2025 Eosinophils/100 WBC (Bld) 1.1 % 0-5 [facility] Erythrocyte distribution wid th ratioOrdered By: Shanice Sharp on 03-25-2025 Erythrocyte distribution width (RBC) [Ratio] 12.2 % 11.6-14.6 [facility] Erythrocyte distribution wid th standard deviationOrdered By: Shanice Sharp on 03-25-2025 Erythrocyte distribution width (RBC) [Ratio] 38.8 fl 35.1-43.9 [facility] Glomerular filtration rate ( GFR) estimation/1.73 sq m using serum, plasma, or whole bOrdered By: Shanice Sharp on 04-25-2025 GFR/1.73 sq M.predicted among non-blacks MDRD (S/P/Bld) [Vol rate/Area] 99 mL/min/{1.73_m2} >60 [facility] Comment on above: mL/min/1.73m2 CKD-EP I Creatinine Equation (2020) Hematocrit Auto (Bld) [Volum e fraction]Ordered By: Shanice Sharp on 03-25-2025 Hematocrit (Bld) [Volume fraction] 42.3 % 40-54 [facility] Hemoglobin measurementOrdere d By: Shanice Sharp on 03-25-2025 Hemoglobin (Bld) [Mass/Vol] 14.5 g/dL 13.0-16.5 [facility] Immature granulocytes/100 WB C Auto (Bld)Ordered By: Shanice Sharp on 03-25-2025 Immature granulocytes/100 WBC (Bld) 0.200 % 0.0-0.9 [facility] Comment on above: IG% - Immature Granu locytes (promyelocytes, myelocytes and metamyelocytes) > 1% indicates that a LEFT SHIFT is Present. Laboratory - Chemistry and C hemistry - challengeOrdered By: Shanice Sharp on 03-25-2025 AST [Catalytic activity/Vol] 20 U/L <38 [facility] MCV (mean corpuscular volume ) determinationOrdered By: Shanice Sharp on 03-25-2025 MCV (RBC) [Entitic vol] 87.4 fL 80-94 [facility] Mean corpuscular hemoglobin (MCH) determinationOrdered By: Shanice Sharp on 03-25-2025 MCH (RBC) [Entitic mass] 30.0 pg 27.0-32.0 [facility] Mean corpuscular hemoglobin concentration (MCHC) determinationOrdered By: Shanice Sharp on 03-25-2025 MCHC (RBC) [Mass/Vol] 34.3 g/dL 32-36 [facility] Mean platelet volume determi nationOrdered By: Shanice Sharp on 03-25-2025 Platelet mean volume (Bld) [Entitic vol] 9.1 fL 6.2-12.0 [facility] Monocyte percentageOrdered B y: Shanice Sharp on 03-25-2025 Monocytes/100 WBC (Bld) 9.2 % 0-10 [facility] Neutrophil percentageOrdered By: Shanice Sharp on 03-25-2025 Neutrophils/100 WBC (Bld) 48.6 % 47-70 [facility] Nucleated red blood cell per centageOrdered By: Shanice Sharp on 03-25-2025 Nucleated RBC/100 WBC (Bld) [Ratio] 0 % 0-5 [facility] Platelet countOrdered By: Douglas Sharp on 03-25-2025 Platelets (Bld) [#/Vol] 284 10*3/uL 150-450 [facility] Potassium measurement (mass/ volume)Ordered By: Shanice Sharp on 03-25-2025 Potassium (Unsp spec) [Mass/Vol] 4.0 mmol/L 3.3-5.1 [facility] RBC Auto (Bld) [#/Vol]Ordere d By: Shanice Sharp on 03-25-2025 RBC (Bld) [#/Vol] 4.84 10*6/uL 4.6-6.2 [facility] Serum creatinine measurement (mass/volume)Ordered By: Shanice Sharp on 03-25-2025 Creatinine [Mass/Vol] 1.08 mg/dL 0.70-1.20 [facility] Serum globulin measurementOr dered By: Shanice Sharp on 03-25-2025 Globulin (S) [Mass/Vol] 2.7 g/dL 2.2-4.2 [facility] Serum glucose measurement (m ass/volume)Ordered By: Shanice Sharp on 03-25-2025 Glucose [Mass/Vol] 68 mg/dL Low 70-99 [facility] Serum or plasma alanine wolfe otransferase (ALT) measurementOrdered By: Shanice Sharp on 03-25-2025 ALT [Catalytic activity/Vol] 20 U/L <47 [facility] Serum or plasma albumin rob urement (mass/volume)Ordered By: Shanice Sharp on 03-25-2025 Albumin [Mass/Vol] 4.8 g/dL 3.5-5.0 [facility] Serum or plasma albumin/glob ulin mass ratioOrdered By: Shanice Sharp on 03-25-2025 Albumin/Globulin [Mass ratio] 1.8 {ratio} 0.9-2.4 [facility] Serum or plasma alkaline starla sphatase measurementOrdered By: Shanice Sharp on 03-25-2025 ALP [Catalytic activity/Vol] 67 U/L 40-129 [facility] Serum or plasma calcium rob urement (mass/volume)Ordered By: Shanice Sharp on 03-25-2025 Calcium [Mass/Vol] 9.7 mg/dL 7.6-11.0 [facility] Serum or plasma urea nitroge n measurement (mass/volume)Ordered By: Shanice Sharp on 03-25-2025 Urea nitrogen [Mass/Vol] 14 mg/dL 4-19 [facility] Sodium levelOrdered By: Bhaskar Sharp on 03-25-2025 Sodium [Moles/Vol] 141 mmol/L 133-145 [facility] Total proteinOrdered By: Awa Sharp on 03-25-2025 Protein [Mass/Vol] 7.4 g/dL 5.9-8.4 [facility] White blood cell (WBC) count Ordered By: Shanice Sharp on 03-25-2025 WBC (Bld) [#/Vol] 6.5 10*3/uL 4.4-11.0 [facility] CBC W/Diff, Automatedon - Absolute Lymph 2.12 X10 3/uL Normal 0.83-4.51 [facility] Comment on above: Performed By: #### L 100.0100, L500.4050 #### [facility] [address] [facility] [place], [address] Absolute Neut 4.7 X10 3/uL Normal 2.0-7.7 [facility] Comment on above: Performed By: #### L 100.0100, L500.4050 #### [facility] [address] [place], [address] Basophils/100 WBC (Bld) 0.7 % Normal 0-1 [facility] Comment on above: Performed By: #### L 100.0100, L500.4050 #### [facility] [address] [place], [address] Eosinophils/100 WBC (Bld) 0.8 % Normal 0-5 [facility] Comment on above: Performed By: #### L 100.0100, L500.4050 #### [facility] [address] [place], [address] Erythrocyte distribution width (RBC) [Ratio] 12.4 % Normal 11.6-14.6 [facility] Comment on above: Performed By: #### L 100.0100, L500.4050 #### [facility] [address] [place], [address] Hematocrit (Bld) [Volume fraction] 42.6 % Normal 40-54 [facility] Comment on above: Performed By: #### L 100.0100, L500.4050 #### [facility] [address] [place], [address] Hemoglobin (Bld) [Mass/Vol] 14.7 g/dL Normal 13.0-16.5 [facility] Comment on above: Performed By: #### L 100.0100, L500.4050 #### [facility] [address] [place], [address] IG% 0.400 Normal 0.0-0.9 [facility] Comment on above: Result Comment: IG% - Immature Granulocytes (promyelocytes, myelocytes and metamyelocytes) > 1% indicates that a LEFT SHIFT is Present. Performed By: #### L 100.0100, L500.4050 #### [facility] [address] [place], [address] Lymphocytes/100 WBC (Bld) 27.8 % Normal 19-41 [facility] Comment on above: Performed By: #### L 100.0100, L500.4050 #### [facility] [address] [place], [address] MCH (RBC) [Entitic mass] 29.9 pg Normal 27.0-32.0 [facility] Comment on above: Performed By: #### L 100.0100, L500.4050 #### [facility] [address] [place], [address] MCHC (RBC) [Mass/Vol] 34.5 g/dL Normal 32-36 [facility] Comment on above: Performed By: #### L 100.0100, L500.4050 #### [facility] [address] [place], [address] MCV (RBC) [Entitic vol] 86.6 fL Normal 80-94 [facility] Comment on above: Performed By: #### L 100.0100, L500.4050 #### [facility] [address] [place], [address] Monocytes/100 WBC (Bld) 8.8 % Normal 0-10 [facility] Comment on above: Performed By: #### L 100.0100, L500.4050 #### [facility] [address] [place], [address] Neutrophils/100 WBC (Bld) 61.5 % Normal 47-70 [facility] Comment on above: Performed By: #### L 100.0100, L500.4050 #### [facility] [address] [place], [address] Nucleated RBC (Bld) [#/Vol] 0 10*3/uL Normal 0-5 [facility] Comment on above: Performed By: #### L 100.0100, L500.4050 #### [facility] [address] [place], [address] Platelet mean volume (Bld) [Entitic vol] 8.5 fL Normal 6.2-12.0 [facility] Comment on above: Performed By: #### L 100.0100, L500.4050 #### [facility] [address] [place], [address] Platelets (Bld) [#/Vol] 323 10*3/uL Normal 150-450 [facility] Comment on above: Performed By: #### L 100.0100, L500.4050 #### [facility] [address] [place], [address] RBC (Bld) [#/Vol] 4.92 10*6/uL Normal 4.6-6.2 [facility] Comment on above: Performed By: #### L 100.0100, L500.4050 #### [facility] [address] [place], [address] RDW SD 39.3 fl Normal 35.1-43.9 [facility] Comment on above: Performed By: #### L 100.0100, L500.4050 #### [facility] [address] [place], [address] WBC (Bld) [#/Vol] 7.6 10*3/uL Normal 4.4-11.0 [facility] Comment on above: Performed By: #### L 100.0100, L500.4050 #### [facility] [address] [place], [address] Comprehensive Metabolic [facility] 12-27-2024 Albumin [Mass/Vol] 4.2 g/dL Normal 3.2-5.0 [facility] Comment on above: Performed By: #### L 100.0100, L500.4050 #### [facility] [address] [place], [address] Albumin/Globulin [Mass ratio] 1.2 {ratio} Normal 0.9-2.4 [facility] Comment on above: Performed By: #### L 100.0100, L500.4050 #### [facility] [address] [place], [address] ALK P 84 U/L Normal 45-117 [facility] Comment on above: Performed By: #### L 100.0100, L500.4050 #### [facility] [address] [place], [address] ALT [Catalytic activity/Vol] 42 U/L Normal 16-61 [facility] Comment on above: Performed By: #### L 100.0100, L500.4050 #### [facility] [address] [place], [address] AST [Catalytic activity/Vol] 30 U/L Normal 15-37 [facility] Comment on above: Performed By: #### L 100.0100, L500.4050 #### [facility] [address] [place], [address] Bilirubin [Mass/Vol] 0.50 mg/dL Normal 0.20-1.00 [facility] Comment on above: Result Comment: For patients on eltrombopag therapy, use of Dimension [place] TBIL is not recommended. Performed By: #### L 100.0100, L500.4050 #### [facility] [address] [place], [address] BUN/CRE 9.3 RATIO Low 10-20 [facility] Comment on above: Performed By: #### L 100.0100, L500.4050 #### [facility] [address] [place], [address] CA,Total 9.2 mg/dL Normal 8.5-10.1 [facility] Comment on above: Performed By: #### L 100.0100, L500.4050 #### [facility] [address] [place], [address] Chloride [Moles/Vol] 102 mmol/L Normal 98-107 [facility] Comment on above: Performed By: #### L 100.0100, L500.4050 #### [facility] [address] [place], [address] CO2 [Moles/Vol] 29.0 mmol/L Normal 21.0-32.0 [facility] Comment on above: Performed By: #### L 100.0100, L500.4050 #### [facility] [address] [place], [address] Creatinine [Mass/Vol] 1.08 mg/dL Normal 0.70-1.30 [facility] Comment on above: Result Comment: The validity of the calculated GFR GFRAA in patients over 70 years has not been determined. Clinical correlation is essential. Performed By: #### L 100.0100, L500.4050 #### [facility] [address] [place], [address] EST GFR - AA 109 mL/min Normal >60 [facility] Comment on above: Result Comment: Afri can [place]e GFR Calc Performed By: #### L 100.0100, L500.4050 #### [facility] [address] [place], [address] GAP 8 Normal 5-15 [facility] Comment on above: Performed By: #### L 100.0100, L500.4050 #### [facility] [address] [place], [address] GFR/1.73 sq M.predicted among non-blacks MDRD (S/P/Bld) [Vol rate/Area] 90 mL/min/{1.73_m2} Normal >60 [facility] Comment on above: Result Comment: Non- GFR Calc Performed By: #### L 100.0100, L500.4050 #### [facility] [address] [place], [address] Globulin (S) [Mass/Vol] 3.6 g/dL Normal 2.2-4.2 [facility] Comment on above: Performed By: #### L 100.0100, L500.4050 #### [facility] [address] [place], [address] Glucose [Mass/Vol] 90 mg/dL Normal 74-106 [facility] Comment on above: Performed By: #### L 100.0100, L500.4050 #### [facility] [address] [place], [address] Potassium [Moles/Vol] 3.8 mmol/L Normal 3.5-5.1 [facility] Comment on above: Performed By: #### L 100.0100, L500.4050 #### [facility] [address] [place], [address] Sodium [Moles/Vol] 138 mmol/L Normal 136-145 [facility] Comment on above: Performed By: #### L 100.0100, L500.4050 #### [facility] [address] [place], [address] T PROT 7.8 g/dL Normal 6.4-8.2 [facility] Comment on above: Performed By: #### L 100.0100, L500.4050 #### [facility] [address] [place], [address] Urea nitrogen [Mass/Vol] 10 mg/dL Normal 7-18 [facility] Comment on above: Performed By: #### L 100.0100, L500.4050 #### [facility] [address] [place], [address] CBC W/Diff, Automatedon 11-0 Absolute Lymph 2.44 X10 3/uL Normal 0.83-4.51 [facility] Comment on above: Performed By: #### L 100.0100, L500.4050 #### [facility] [address] [place], [address] Absolute Neut 3.2 X10 3/uL Normal 2.0-7.7 [facility] Comment on above: Performed By: #### L 100.0100, L500.4050 #### [facility] [address] [place], [address] Basophils/100 WBC (Bld) 0.5 % Normal 0-1 [facility] Comment on above: Performed By: #### L 100.0100, L500.4050 #### [facility] [address] [place], [address] Eosinophils/100 WBC (Bld) 1.3 % Normal 0-5 [facility] Comment on above: Performed By: #### L 100.0100, L500.4050 #### [facility] [address] [place], [address] Erythrocyte distribution width (RBC) [Ratio] 12.4 % Normal 11.6-14.6 [facility] Comment on above: Performed By: #### L 100.0100, L500.4050 #### [facility] [address] [place], [address] Hematocrit (Bld) [Volume fraction] 43.4 % Normal 40-54 [facility] Comment on above: Performed By: #### L 100.0100, L500.4050 #### [facility] [address] [place], [address] Hemoglobin (Bld) [Mass/Vol] 14.3 g/dL Normal 13.0-16.5 [facility] Comment on above: Performed By: #### L 100.0100, L500.4050 #### [facility] [address] [place], [address] IG% 0.200 Normal 0.0-0.9 [facility] Comment on above: Result Comment: IG% - Immature Granulocytes (promyelocytes, myelocytes and metamyelocytes) > 1% indicates that a LEFT SHIFT is Present. Performed By: #### L 100.0100, L500.4050 #### [facility] [address] [place], [address] Lymphocytes/100 WBC (Bld) 38.8 % Normal 19-41 [facility] Comment on above: Performed By: #### L 100.0100, L500.4050 #### [facility] [address] [place], [address] MCH (RBC) [Entitic mass] 28.9 pg Normal 27.0-32.0 [facility] Comment on above: Performed By: #### L 100.0100, L500.4050 #### [facility] [address] [place], [address] MCHC (RBC) [Mass/Vol] 32.9 g/dL Normal 32-36 [facility] Comment on above: Performed By: #### L 100.0100, L500.4050 #### [facility] [address] [place], [address] MCV (RBC) [Entitic vol] 87.9 fL Normal 80-94 [facility] Comment on above: Performed By: #### L 100.0100, L500.4050 #### [facility] [address] [place], [address] Monocytes/100 WBC (Bld) 9.2 % Normal 0-10 [facility] Comment on above: Performed By: #### L 100.0100, L500.4050 #### [facility] [address] [place], [address] Neutrophils/100 WBC (Bld) 50.0 % Normal 47-70 [facility] Comment on above: Performed By: #### L 100.0100, L500.4050 #### [facility] [address] [place], [address] Nucleated RBC (Bld) [#/Vol] 0 10*3/uL Normal 0-5 [facility] Comment on above: Performed By: #### L 100.0100, L500.4050 #### [facility] [address] [place], [address] Platelet mean volume (Bld) [Entitic vol] 9.2 fL Normal 6.2-12.0 [facility] Comment on above: Performed By: #### L 100.0100, L500.4050 #### [facility] [address] [place], [address] Platelets (Bld) [#/Vol] 266 10*3/uL Normal 150-450 [facility] Comment on above: Performed By: #### L 100.0100, L500.4050 #### [facility] [address] [place], [address] RBC (Bld) [#/Vol] 4.94 10*6/uL Normal 4.6-6.2 [facility] Comment on above: Performed By: #### L 100.0100, L500.4050 #### [facility] [address] [place], [address] RDW SD 39.8 fl Normal 35.1-43.9 [facility] Comment on above: Performed By: #### L 100.0100, L500.4050 #### [facility] [address] [place], [address] WBC (Bld) [#/Vol] 6.3 10*3/uL Normal 4.4-11.0 [facility] Comment on above: Performed By: #### L 100.0100, L500.4050 #### [facility] [address] [place], [address] Comprehensive Metabolic Prof ilon 10-01-2024 Albumin [Mass/Vol] 4.2 g/dL Normal 3.2-5.0 [facility] Comment on above: Performed By: #### L 100.0100, L500.4050 #### [facility] [address] [place], [address] Albumin/Globulin [Mass ratio] 1.2 {ratio} Normal 0.9-2.4 [facility] Comment on above: Performed By: #### L 100.0100, L500.4050 #### [facility] [address] [place], [address] ALK P 68 U/L Normal 45-117 [facility] Comment on above: Performed By: #### L 100.0100, L500.4050 #### [facility] [address] [place], [address] ALT [Catalytic activity/Vol] 21 U/L Normal 16-61 [facility] Comment on above: Performed By: #### L 100.0100, L500.4050 #### [facility] [address] [place], [address] AST [Catalytic activity/Vol] 11 U/L Low 15-37 [facility] Comment on above: Performed By: #### L 100.0100, L500.4050 #### [facility] [address] [place], [address] Bilirubin [Mass/Vol] 0.50 mg/dL Normal 0.20-1.00 [facility] Comment on above: Result Comment: For patients on eltrombopag therapy, use of Dimension [place] TBIL is not recommended. Performed By: #### L 100.0100, L500.4050 #### [facility] [address] [place], [address] BUN/CRE 10.8 RATIO Normal 10-20 [facility] Comment on above: Performed By: #### L 100.0100, L500.4050 #### [facility] [address] [place], [address] CA,Total 9.3 mg/dL Normal 8.5-10.1 [facility] Comment on above: Performed By: #### L 100.0100, L500.4050 #### [facility] [address] [place], [address] Chloride [Moles/Vol] 104 mmol/L Normal 98-107 [facility] Comment on above: Performed By: #### L 100.0100, L500.4050 #### [facility] [address] [place], [address] CO2 [Moles/Vol] 29.0 mmol/L Normal 21.0-32.0 [facility] Comment on above: Performed By: #### L 100.0100, L500.4050 #### [facility] [address] [place], [address] Creatinine [Mass/Vol] 1.02 mg/dL Normal 0.70-1.30 [facility] Comment on above: Result Comment: The validity of the calculated GFR GFRAA in patients over 70 years has not been determined. Clinical correlation is essential. Performed By: #### L 100.0100, L500.4050 #### [facility] [address] [place], [address] EST GFR - AA 117 mL/min Normal >60 [facility] Comment on above: Result Comment: Afri can [place] GFR Calc Performed By: #### L 100.0100, L500.4050 #### [facility] [address] [place], [address] GAP 4 Low 5-15 [facility] Comment on above: Performed By: #### L 100.0100, L500.4050 #### [facility] [address] [place], [address] GFR/1.73 sq M.predicted among non-blacks MDRD (S/P/Bld) [Vol rate/Area] 97 mL/min/{1.73_m2} Normal >60 [facility] Comment on above: Result Comment: Non- GFR Calc Performed By: #### L 100.0100, L500.4050 #### [facility] [address] [place], [address] Globulin (S) [Mass/Vol] 3.4 g/dL Normal 2.2-4.2 [facility] Comment on above: Performed By: #### L 100.0100, L500.4050 #### [facility] [address] [place], [address] Glucose [Mass/Vol] 79 mg/dL Normal 74-106 [facility] Comment on above: Performed By: #### L 100.0100, L500.4050 #### [facility] [address] [place], [address] Potassium [Moles/Vol] 3.9 mmol/L Normal 3.5-5.1 [facility] Comment on above: Performed By: #### L 100.0100, L500.4050 #### [facility] [address] [place], [address] Sodium [Moles/Vol] 137 mmol/L Normal 136-145 [facility] Comment on above: Performed By: #### L 100.0100, L500.4050 #### [facility] [address] [place], [address] T PROT 7.6 g/dL Normal 6.4-8.2 [facility] Comment on above: Performed By: #### L 100.0100, L500.4050 #### [facility] [address] [place], [address] Urea nitrogen [Mass/Vol] 11 mg/dL Normal 7-18 [facility] Comment on above: Performed By: #### L 100.0100, L500.4050 #### [facility] [address] [place], [address] CBC W/Diff, Automatedon 08-0 6-2023 Absolute Lymph 2.21 X10 3/uL Normal 0.83-4.51 [facility] Comment on above: Performed By: #### L 500.4050, L100.0100 #### [facility] [address] [place], [address] Absolute Neut 3.4 X10 3/uL Normal 2.0-7.7 [facility] Comment on above: Performed By: #### L 500.4050, L100.0100 #### [facility] [address] [place], [address] Basophils/100 WBC (Bld) 0.8 % Normal 0-1 [facility] Comment on above: Performed By: #### L 500.4050, L100.0100 #### [facility] [address] [place], [address] Eosinophils/100 WBC (Bld) 0.8 % Normal 0-5 [facility] Comment on above: Performed By: #### L 500.4050, L100.0100 #### [facility] [address] [place], [address] Erythrocyte distribution width (RBC) [Ratio] 12.7 % Normal 11.6-14.6 [facility] Comment on above: Performed By: #### L 500.4050, L100.0100 #### [facility] [address] [place], [address] Hematocrit (Bld) [Volume fraction] 44.1 % Normal 40-54 [facility] Comment on above: Performed By: #### L 500.4050, L100.0100 #### [facility] [address] [place], [address] Hemoglobin (Bld) [Mass/Vol] 14.9 g/dL Normal 13.0-16.5 [facility] Comment on above: Performed By: #### L 500.4050, L100.0100 #### [facility] [address] [place], [address] IG% 0.200 Normal 0.0-0.9 [facility] Comment on above: Result Comment: IG% - Immature Granulocytes (promyelocytes, myelocytes and metamyelocytes) > 1% indicates that a LEFT SHIFT is Present. Performed By: #### L 500.4050, L100.0100 #### [facility] [address] [place], [address] Lymphocytes/100 WBC (Bld) 35.4 % Normal 19-41 [facility] Comment on above: Performed By: #### L 500.4050, L100.0100 #### [facility] [address] [place], [address] MCH (RBC) [Entitic mass] 29.3 pg Normal 27.0-32.0 [facility] Comment on above: Performed By: #### L 500.4050, L100.0100 #### [facility] [address] [place], [address] MCHC (RBC) [Mass/Vol] 33.8 g/dL Normal 32-36 [facility] Comment on above: Performed By: #### L 500.4050, L100.0100 #### [facility] [address] [place], [address] MCV (RBC) [Entitic vol] 86.8 fL Normal 80-94 [facility] Comment on above: Performed By: #### L 500.4050, L100.0100 #### [facility] [address] [place], [address] Monocytes/100 WBC (Bld) 8.3 % Normal 0-10 [facility] Comment on above: Performed By: #### L 500.4050, L100.0100 #### [facility] [address] [place], [address] Neutrophils/100 WBC (Bld) 54.5 % Normal 47-70 [facility] Comment on above: Performed By: #### L 500.4050, L100.0100 #### [facility] [address] [place], [address] Nucleated RBC (Bld) [#/Vol] 0 10*3/uL Normal 0-5 [facility] Comment on above: Performed By: #### L 500.4050, L100.0100 #### [facility] [address] [place], [address] Platelet mean volume (Bld) [Entitic vol] 8.6 fL Normal 6.2-12.0 [facility] Comment on above: Performed By: #### L 500.4050, L100.0100 #### [facility] [address] [place], [address] Platelets (Bld) [#/Vol] 282 10*3/uL Normal 150-450 [facility] Comment on above: Performed By: #### L 500.4050, L100.0100 #### [facility] [address] [place], [address] RBC (Bld) [#/Vol] 5.08 10*6/uL Normal 4.6-6.2 [facility] Comment on above: Performed By: #### L 500.4050, L100.0100 #### [facility] [address] [place], [address] RDW SD 39.9 fl Normal 35.1-43.9 [facility] Comment on above: Performed By: #### L 500.4050, L100.0100 #### [facility] [address] [place], [address] WBC (Bld) [#/Vol] 6.3 10*3/uL Normal 4.4-11.0 [facility] Comment on above: Performed By: #### L 500.4050, L100.0100 #### [facility] [address] [place], [address] Comprehensive Metabolic Prof akon 07-06-2024 Albumin [Mass/Vol] 4.1 g/dL Normal 3.2-5.0 [facility] Comment on above: Performed By: #### L 500.4050, L100.0100 #### [facility] [address] [place], [address] Albumin/Globulin [Mass ratio] 1.1 {ratio} Normal 0.9-2.4 [facility] Comment on above: Performed By: #### L 500.4050, L100.0100 #### [facility] [address] [place], [address] ALK P 71 U/L Normal 45-117 [facility] Comment on above: Performed By: #### L 500.4050, L100.0100 #### [facility] [address] [place], [address] ALT [Catalytic activity/Vol] 22 U/L Normal 16-61 [facility] Comment on above: Performed By: #### L 500.4050, L100.0100 #### [facility] [address] [place], [address] AST [Catalytic activity/Vol] 19 U/L Normal 15-37 [facility] Comment on above: Performed By: #### L 500.4050, L100.0100 #### [facility] [address] [place], [address] Bilirubin [Mass/Vol] 0.60 mg/dL Normal 0.20-1.00 [facility] Comment on above: Result Comment: For patients on eltrombopag therapy, use of Dimension [place] TBIL is not recommended. Performed By: #### L 500.4050, L100.0100 #### [facility] [address] [place], [address] BUN/CRE 12.8 RATIO Normal 10-20 [facility] Comment on above: Performed By: #### L 500.4050, L100.0100 #### [facility] [address] [place], [address] CA,Total 9.1 mg/dL Normal 8.5-10.1 [facility] Comment on above: Performed By: #### L 500.4050, L100.0100 #### [facility] [address] [place], [address] Chloride [Moles/Vol] 105 mmol/L Normal 98-107 [facility] Comment on above: Performed By: #### L 500.4050, L100.0100 #### [facility] [address] [place], [address] CO2 [Moles/Vol] 30.0 mmol/L Normal 21.0-32.0 [facility] Comment on above: Performed By: #### L 500.4050, L100.0100 #### [facility] [address] [place], [address] Creatinine [Mass/Vol] 1.09 mg/dL Normal 0.70-1.30 [facility] Comment on above: Result Comment: The validity of the calculated GFR GFRAA in patients over 70 years has not been determined. Clinical correlation is essential. Performed By: #### L 500.4050, L100.0100 #### [facility] [address] [place], [address] EST GFR - AA 108 mL/min Normal >60 [facility] Comment on above: Result Comment: Afri can [place]alese GFR Calc Performed By: #### L 500.4050, L100.0100 #### [facility] [address] [place], [address] GAP 6 Normal 5-15 [facility] Comment on above: Performed By: #### L 500.4050, L100.0100 #### [facility] [address] [place], [address] GFR/1.73 sq M.predicted among non-blacks MDRD (S/P/Bld) [Vol rate/Area] 90 mL/min/{1.73_m2} Normal >60 [facility] Comment on above: Result Comment: Non- GFR Calc Performed By: #### L 500.4050, L100.0100 #### [facility] [address] [place], [address] Globulin (S) [Mass/Vol] 3.6 g/dL Normal 2.2-4.2 [facility] Comment on above: Performed By: #### L 500.4050, L100.0100 #### [facility] [address] [place], [address] Glucose [Mass/Vol] 83 mg/dL Normal 74-106 [facility] Comment on above: Performed By: #### L 500.4050, L100.0100 #### [facility] [address] [place], [address] Potassium [Moles/Vol] 3.8 mmol/L Normal 3.5-5.1 [facility] Comment on above: Performed By: #### L 500.4050, L100.0100 #### [facility] [address] [place], [address] Sodium [Moles/Vol] 141 mmol/L Normal 136-145 [facility] Comment on above: Performed By: #### L 500.4050, L100.0100 #### [facility] [address] [place], [address] T PROT 7.7 g/dL Normal 6.4-8.2 [facility] Comment on above: Performed By: #### L 500.4050, L100.0100 #### [facility] [address] [place], [address] Urea nitrogen [Mass/Vol] 14 mg/dL Normal 7-18 [facility] Comment on above: Performed By: #### L 500.4050, L100.0100 #### [facility] [address] [place], [address] Absolute lymphocyte countOrd ered By: Shanice Sharp on 02-16-2024 Lymphocytes Auto (Unsp spec) [#/Vol] 2.73 10*3/uL 0.83-4.51 [facility] Automated lymphocyte count a s percentage of total leukocytesOrdered By: Shanice Sharp on 02-16-2024 Lymphocytes/100 WBC Auto (Unsp spec) 39.1 % 19-41 [facility] Basophil percentageOrdered B y: Shanice Sharp on 02-16-2024 Basophils/100 WBC (Bld) 0.6 % 0-1 [facility] Bilirubin [Mass/Vol] 0.60 mg/dL 0.20-1.00 [facility] Comment on above: For patients on eltr ombopag therapy, use of Dimension [place] TBIL is not recommended. Chloride [Moles/Vol] 101 mmol/L 98-107 [facility] Eosinophils/100 WBC (Bld) 0.9 % 0-5 [facility] Glucose [Mass/Vol] 81 mg/dL 74-106 [facility] Hemoglobin (Bld) [Mass/Vol] 14.8 g/dL 13.0-16.5 [facility] Monocytes/100 WBC (Bld) 8.2 % 0-10 [facility] Neutrophils (Bld) [#/Vol] 3.6 10*3/uL 2.0-7.7 [facility] Neutrophils/100 WBC (Bld) 51.1 % 47-70 [facility] Potassium [Moles/Vol] 4.0 mmol/L 3.5-5.1 [facility] Protein [Mass/Vol] 7.8 g/dL 6.4-8.2 [facility] Sodium [Moles/Vol] 138 mmol/L 136-145 [facility] WBC (Bld) [#/Vol] 7.0 10*3/uL 4.4-11.0 [facility] Determination of erythrocyte mean corpuscular volume (MCV)Ordered By: Shanice Sharp on 02-16-2024 MCV (RBC) [Entitic vol] 86.9 fL 80-94 [facility] Erythrocyte distribution wid th ratioOrdered By: Shanice Lila on 02-16-2024 Erythrocyte distribution width (RBC) [Ratio] 12.7 % 11.6-14.6 [facility] Erythrocyte distribution wid th standard deviationOrdered By: Shanice Lila on 02-16-2024 Erythrocyte distribution width (RBC) [Entitic vol] 40.3 fL 35.1-43.9 [facility] Hematocrit Auto (Bld) [Volum e fraction]Ordered By: Shanice Sharp on 02-16-2024 Hematocrit (Bld) [Volume fraction] 43.6 % 40-54 [facility] Immature granulocytes/100 WB C Auto (Bld)Ordered By: Shanice Sharp on 02-16-2024 Immature granulocytes/100 WBC (Bld) 0.100 % 0.0-0.9 [facility] Comment on above: IG% - Immature Granu locytes (promyelocytes, myelocytes and metamyelocytes) > 1% indicates that a LEFT SHIFT is Present. Laboratory - Chemistry and C hemistry - challengeOrdered By: Shanice Sharp on 02-16-2024 Albumin/Globulin [Mass ratio] 1.2 {ratio} 0.9-2.4 [facility] ALP [Catalytic activity/Vol] 72 U/L 45-117 [facility] ALT [Catalytic activity/Vol] 21 U/L 16-61 [facility] CO2 [Moles/Vol] 30.0 mmol/L 21.0-32.0 [facility] Globulin (S) [Mass/Vol] 3.5 g/dL 2.2-4.2 [facility] Urea nitrogen/Creatinine [Mass ratio] 14.5 mg/mg 10-20 [facility] - Hematology and Cell countsOrdered By: Shanice Sharp on 02-16-2024 MCH (RBC) [Entitic mass] 29.5 pg 27.0-32.0 [facility] MCHC (RBC) [Mass/Vol] 33.9 g/dL 32-36 [facility] Nucleated RBC/100 WBC (Bld) [Ratio] 0 % 0-5 [facility] Platelet mean volume (Bld) [Entitic vol] 8.6 fL 6.2-12.0 [facility] Platelets (Bld) [#/Vol] 287 10*3/uL 150-450 [facility] No Panel InformationOrdered By: Shanice Sharp on 02-16-2024 Estimated GFR (MDRD) Amer 125 mL/min >60 [facility] Comment on above: GFR Calc Estimated GFR (MDRD) Non-Af Amer 104 mL/min >60 [facility] Comment on above: Non- GFR Calc RBC Auto (Bld) [#/Vol]Ordere d By: Shanice Sharp on 02-16-2024 RBC (Bld) [#/Vol] 5.02 10*6/uL 4.6-6.2 [facility] Serum or plasma calcium rob urement (mass/volume)Ordered By: Shanice Sharp on 02-16-2024 Calcium [Mass/Vol] 9.3 mg/dL 8.5-10.1 [facility] Serum or plasma creatinine m easurement (mass/volume)Ordered By: Shanice Sharp on 02-16-2024 Creatinine [Mass/Vol] 0.96 mg/dL 0.70-1.30 [facility] Comment on above: The validity of the calculated GFR & GFRAA in patients over 70 years has not been determined. Clinical correlation is essential. Serum or plasma urea nitroge n measurement (mass/volume)Ordered By: Shanice Sharp on 02-16-2024 Urea nitrogen [Mass/Vol] 14 mg/dL 06-17 [facility] Thin prep Papanicolaou smear with manual screeningOrdered By: Shanice Sharp on 02-16-2024 Thin prep Papanicolaou smear with manual screening 4.3 g/dL 3.2-5.0 [facility] Thin prep Papanicolaou smear with manual screening 19 U/L 15 [facility] Thin prep Papanicolaou smear with manual screening 7 5- [facility] CBC + DIFFon 12-23-2023 ATY LYMP 3 % Normal [facility] Comment on above: Performed By: #### 2 84476 #### [facility],[address] [place] [address] Baso # 0.00 x10EE3/UL Normal 0.00 - 0.10 [facility] Comment on above: Performed By: #### 2 87824 #### [facility],[address] [place] [address] Basophils/100 WBC (Bld) 0.6 % Normal 0.0 - 2.0 [facility] Comment on above: Performed By: #### 2 74372 #### [facility],[address] [place] [address] CBC + DIFF Normal [facility] Comment on above: Result Comment: CBC- COMPLETE BLOOD COUNT Performed By: #### 2 80178 #### [address] [address] CELL COUNT 100 Normal [facility] Comment on above: Performed By: #### 2 83554 #### [facility],[address] [place] [address] EO 1.0 % Normal 0.0 - 4.0 [facility] Comment on above: Performed By: #### 2 35490 #### [facility],[address] [place] [address] EO # 0.10 x10EE3/UL Normal 0.00 - 0.50 [facility] Comment on above: Performed By: #### 2 15203 #### [facility],[address] [place] [address] Eosinophils/100 WBC (Bld) 1.3 % Normal 0.0 - 7.0 [facility] Comment on above: Performed By: #### 2 82236 #### [facility],[address] [place] [address] Erythrocyte distribution width (RBC) [Ratio] 13.8 % Normal 12.0 - 15.6 [facility] Comment on above: Performed By: #### 2 30556 #### [place] [id number] Hematocrit (Bld) [Volume fraction] 48.2 % Normal 40.0 - 52.0 [facility] Comment on above: Performed By: #### 2 19888 #### [facility],[address] [place] [address] Hemoglobin (Bld) [Mass/Vol] 16.1 g/dL Normal 13.0 - 17.5 [facility] Comment on above: Performed By: #### 2 32978 #### [facility],[address] [place] [address] Lymph # 2.60 x10EE3/UL Normal 0.80 - 2.80 [facility] Comment on above: Performed By: #### 2 22345 #### [facility],[address] [place] [address] Lymphocytes/100 WBC (Bld) 38.0 % Normal 20.0 - 45.0 [facility] Comment on above: Performed By: #### 2 92050 #### [facility],[address] [place] [address] Lymphocytes/100 WBC (Bld) 36 % Normal 20 - 40 [facility] Comment on above: Performed By: #### 2 57468 #### [facility],[address] [place] [address] MANUAL DIFF SEE BELOW Normal [facility] Comment on above: Performed By: #### 2 67790 #### [facility],[address] [place] [address] MCH (RBC) [Entitic mass] 29 pg Normal 27 - 33 [facility] Comment on above: Performed By: #### 2 05427 #### [facility],[address] [place] [address] MCHC 33 X10 3 Normal 32 - 36 [facility] Comment on above: Performed By: #### 2 03086 #### [facility],[address] [place] [address] MCV (RBC) [Entitic vol] 87 fL Normal 81 - 98 [facility] Comment on above: Performed By: #### 2 13918 #### [facility],[address] [place] [address] Hall # 0.50 x10EE3/UL Normal 0.20 - 1.00 [facility] Comment on above: Performed By: #### 2 21402 #### [facility],[address] [place] [address] MONOS 12 % High 0 - 8 [facility] Comment on above: Performed By: #### 2 38159 #### [facility],[address] [place] [address] MONOS % 8.0 % Normal 0.0 - 10.0 [facility] Comment on above: Performed By: #### 2 13343 #### [facility],[address] [place] [address] Morphology Nestor (Bld) [Interp] REVIEWED Normal [facility] Comment on above: Result Comment: {CD] Performed By: #### 2 26669 #### [facility],[address] [place] [address] Neut # 3.50 x10EE3/UL Normal 1.50 - 7.10 [facility] Comment on above: Performed By: #### 2 68749 #### [facility],[address] [place] [address]897 Neutrophils/100 WBC (Bld) 52.1 % Normal 46.0 - 76.0 [facility] Comment on above: Performed By: #### 2 65195 #### [facility],[address] [place] [address] PLATELET 343 x10EE3/UL Normal 150 - 450 [facility] Comment on above: Performed By: #### 2 06181 #### [facility],[address] [place] [address] Platelet mean volume (Bld) [Entitic vol] 6.8 fL Normal 6.4 - 10.5 [facility] Comment on above: Result Comment: AUTO MATED DIFFERENTIAL Performed By: #### 2 55264 #### [facility],[address] [place] [address] 58185 RBC 5.53 x 10EE6/UL Normal 4.50 - 6.00 [facility] Comment on above: Performed By: #### 2 80304 #### [facility],[address] [place] [address] 13051 SEGS 48 % Low 50 - 70 [facility] Comment on above: Performed By: #### 2 89738 #### [facility],[address] [place] [address] WBC 6.8 x 10EE3/UL Normal 4.5 - 10.8 [facility] Comment on above: Performed By: #### 2 44785 #### [facility],[address] [place] [address] CMP with eGFRon 12-22-2023 AGE 23 years Normal [facility] Comment on above: Performed By: #### 2 57151 #### [facility],[address] [place] [address]6581 Albumin [Mass/Vol] 4.1 g/dL Normal 3.4 - 5.0 [facility] Comment on above: Performed By: #### 2 10946 #### [facility],[address] [place] [address]1898 Albumin/Globulin [Mass ratio] 1.0 {ratio} Normal 0.9 - 1.6 [facility] Comment on above: Performed By: #### 2 84362 #### [facility],[address] [place] [address] ALK PHOS 71 U/L Normal 46 - 116 [facility] Comment on above: Performed By: #### 2 64306 #### [facility],[address] [place] [address] ALT [Catalytic activity/Vol] 16 U/L Normal 16 - 63 [facility] Comment on above: Performed By: #### 2 23021 #### [facility],[address] [place] [address] Anion gap [Moles/Vol] 14 mmol/L Normal 10 - 20 [facility] Comment on above: Performed By: #### 2 92431 #### [facility],[address] [place] [address]1653 AST [Catalytic activity/Vol] 16 U/L Normal 15 - 37 [facility] Comment on above: Performed By: #### 2 19156 #### [facility],[address] [place] [address] B/C RATIO 12 ratio Normal 0 - 30 [facility] Comment on above: Performed By: #### 2 10892 #### [facility],[address] [place] [address] 19217 Bilirubin [Mass/Vol] 0.6 mg/dL Normal 0.2 - 1.0 [facility] Comment on above: Performed By: #### 2 86826 #### [facility],[address] [place] [address] Calcium [Mass/Vol] 9.2 mg/dL Normal 8.5 - 10.1 [facility] Comment on above: Performed By: #### 2 26428 #### [facility],[address] [place] [address] Chloride [Moles/Vol] 101 mmol/L Normal 98 - 107 [facility] Comment on above: Performed By: #### 2 82148 #### [facility],[address] [place] [address]395 CMP with eGFR Normal [facility] Comment on above: Result Comment: COMP REHENSIVE METABOLIC PANEL Performed By: #### 2 58614 #### [facility],[address] [place] [address] CO2 [Moles/Vol] 28.3 mmol/L Normal 21.0 - 32.0 [facility] Comment on above: Performed By: #### 2 52778 #### [facility],[address] [place] [address] Creatinine [Mass/Vol] 0.98 mg/dL Normal 0.70 - 1.30 [facility] Comment on above: Performed By: #### 2 47499 #### [facility],[address] [place] [address] GFR/1.73 sq M.predicted among non-blacks MDRD (S/P/Bld) [Vol rate/Area] mL/min/{1.73_m2} Normal 60 - 999 [facility] Comment on above: Performed By: #### 2 99653 #### [facility],[address] [place] [address] Result Comment: ACCO RDING TO THE NATIONAL KIDNEY DISEASE EDUCATION PROGRAM(NKDE), A NORMAL eGFR IS A VALUE GREATER THAN OR EQUAL TO 60 ML/MIN/1.73 SQ METERS. CHRONIC KIDNEY DISEASE: <60mL/MIN/1.73 SQ METERS KIDNEY FAILURE: <15mL/MIN/1.73 SQ METERS THIS TEST SHOULD ONLY BE USED FOR PATIENTS 18 YEARS OF AGE AND OLDER. Globulin (S) [Mass/Vol] 4.0 g/dL High 1.5 - 3.8 [facility] Comment on above: Performed By: #### 2 85796 #### [address] [address] Glucose [Mass/Vol] 76 mg/dL Normal 74 - 106 [facility] Comment on above: Performed By: #### 2 46190 #### [address] [address] Potassium [Moles/Vol] 3.6 mmol/L Normal 3.5 - 5.1 [facility] Comment on above: Performed By: #### 2 25151 #### [address] [address] Protein [Mass/Vol] 8.1 g/dL Normal 6.4 - 8.2 [facility] Comment on above: Performed By: #### 2 78383 #### [place] [id number] Sodium [Moles/Vol] 140 mmol/L Normal 136 - 145 [facility] Comment on above: Performed By: #### 2 78671 #### [address] [address] Urea nitrogen [Mass/Vol] 12 mg/dL Normal 7 - 18 [facility] Comment on above: Performed By: #### 2 21286 #### [place] [id number] Absolute lymphocyte countOrd ered By: Shanice Sharp on 10-22-2023 Lymphocytes Auto (Unsp spec) [#/Vol] 2.86 10*3/uL 0.83-4.51 [facility] Basophil percentageOrdered B y: Shanice Sharp on 10-22-2023 Basophils/100 WBC (Bld) 0.8 % 0-1 [facility] Bilirubin [Mass/Vol] 0.50 mg/dL 0.20-1.00 [facility] Comment on above: For patients on eltr ombopag therapy, use of Dimension [place] TBIL is not recommended. Chloride [Moles/Vol] 101 mmol/L 98-107 [facility] Eosinophils/100 WBC (Bld) 0.9 % 0-5 [facility] Glucose [Mass/Vol] 73 mg/dL 74-106 [facility] Neutrophils (Bld) [#/Vol] 4.3 10*3/uL 2.0-7.7 [facility] Neutrophils/100 WBC (Bld) 53.9 % 47-70 [facility] Potassium [Moles/Vol] 3.7 mmol/L 3.5-5.1 [facility] Protein [Mass/Vol] 7.8 g/dL 6.4-8.2 [facility] Sodium [Moles/Vol] 138 mmol/L 136-145 [facility] WBC (Bld) [#/Vol] 7.9 10*3/uL 4.4-11.0 [facility] Blood erythrocytes count (nu mber/volume)Ordered By: Shanice Sharp on 10-22-2023 RBC (Bld) [#/Vol] 5.40 10*6/uL 4.6-6.2 [facility] Blood hemoglobin measurement (mass/volume)Ordered By: Shanice Sharp on 10-22-2023 Hemoglobin (Bld) [Mass/Vol] 15.3 g/dL 13.0-16.5 [facility] Blood lymphocytes/100 leukoc ytesOrdered By: Shanice Sharp on 10-22-2023 Lymphocytes/100 WBC (Bld) 36.1 % 19-41 [facility] Blood monocytes/100 leukocyt esOrdered By: Shanice Sharp on 10-22-2023 Monocytes/100 WBC (Bld) 8.0 % 0-10 [facility] Blood platelet mean volumeOr dered By: Shanice Sharp on 10-22-2023 Platelet mean volume (Bld) [Entitic vol] 8.7 fL 6.2-12.0 [facility] Determination of erythrocyte mean corpuscular volume (MCV)Ordered By: Shanice Sharp on 10-22-2023 MCV (RBC) [Entitic vol] 84.6 fL 80-94 [facility] Hematocrit Auto (Bld) [Volum e fraction]Ordered By: Shanicemert Sharp on 10-22-2023 Hematocrit (Bld) [Volume fraction] 45.7 % 40-54 [facility] - Chemistry and C hemistry - challengeOrdered By: Shanicemert Sharp on 10-22-2023 ALP [Catalytic activity/Vol] 73 U/L 45-117 [facility] ALT [Catalytic activity/Vol] 24 U/L 16-61 [facility] CO2 [Moles/Vol] 29.0 mmol/L 21.0-32.0 [facility] Globulin (S) [Mass/Vol] 3.5 g/dL 2.2-4.2 [facility] Urea nitrogen/Creatinine [Mass ratio] 13.1 mg/mg 10-20 [facility] - Hematology and Cell countsOrdered By: [facility] Lila on 10-22-2023 Erythrocyte distribution width (RBC) [Entitic vol] 37.4 fL 35.1-43.9 [facility] Erythrocyte distribution width (RBC) [Ratio] 12.3 % 11.6-14.6 [facility] Immature granulocytes/100 WBC (Bld) 0.300 % 0.0-0.9 [facility] Comment on above: IG% - Immature Granu locytes (promyelocytes, myelocytes and metamyelocytes) > 1% indicates that a LEFT SHIFT is Present. MCH (RBC) [Entitic mass] 28.3 pg 27.0-32.0 [facility] Nucleated RBC/100 WBC (Bld) [Ratio] 0 % 0-5 [facility] MCHC Auto (RBC) [Mass/Vol]Or dered By: Shanicemert Sharp on 10-22-2023 MCHC (RBC) [Mass/Vol] 33.5 g/dL 32-36 [facility] No Panel InformationOrdered By: Shanicemert Sharp on 10-22-2023 Estimated GFR (MDRD) Amer 133 mL/min >60 [facility] Comment on above: GFR Calc Estimated GFR (MDRD) Non-Af Amer 110 mL/min >60 [facility] Comment on above: Non- GFR Calc Platelets bldOrdered By: Awa Sharp on 10-22-2023 Platelets (Bld) [#/Vol] 307 10*3/uL 150-450 [facility] Serum or plasma albumin rob urement (mass/volume)Ordered By: Shanice Sharp on 10-22-2023 Albumin [Mass/Vol] 4.3 g/dL 3.2-5.0 [facility] Serum or plasma albumin/glob ulin mass ratioOrdered By: Shanice Sharp on 10-22-2023 Albumin/Globulin [Mass ratio] 1.2 {ratio} 0.9-2.4 [facility] Serum or plasma calcium rob urement (mass/volume)Ordered By: Shanice Sharp on 10-22-2023 Calcium [Mass/Vol] 8.8 mg/dL 8.5-10.1 [facility] Serum or plasma creatinine m easurement (mass/volume)Ordered By: Shanice Sharp on 10-22-2023 Creatinine [Mass/Vol] 0.92 mg/dL 0.70-1.30 [facility] Comment on above: The validity of the calculated GFR & GFRAA in patients over 70 years has not been determined. Clinical correlation is essential. Serum or plasma urea nitroge n measurement (mass/volume)Ordered By: Shanice Sharp on 10-22-2023 Urea nitrogen [Mass/Vol] 12 mg/dL 7-18 [facility] Thin prep Papanicolaou smear with manual screeningOrdered By: Shanice Sharp on 10-22-2023 Thin prep Papanicolaou smear with manual screening 23 U/L 15-37 [facility] Thin prep Papanicolaou smear with manual screening 8 5-15 [facility] Absolute lymphocyte countOrd ered By: Shanice Sharp on 09-05-2023 Lymphocytes Auto (Unsp spec) [#/Vol] 2.24 10*3/uL 0.83-4.51 [facility] Basophil percentageOrdered B y: Shanice Sharp on 10-06-2023 Basophils/100 WBC (Bld) 0.6 % 0-1 [facility] Bilirubin [Mass/Vol] 0.50 mg/dL 0.20-1.00 [facility] Comment on above: For patients on eltr ombopag therapy, use of Dimension [place] TBIL is not recommended. Chloride [Moles/Vol] 105 mmol/L 98-107 [facility] Eosinophils/100 WBC (Bld) 1.1 % 0-5 [facility] Glucose [Mass/Vol] 89 mg/dL 74-106 [facility] Neutrophils (Bld) [#/Vol] 4.3 10*3/uL 2.0-7.7 [facility] Neutrophils/100 WBC (Bld) 59.8 % 47-70 [facility] Potassium [Moles/Vol] 3.9 mmol/L 3.5-5.1 [facility] Protein [Mass/Vol] 8.1 g/dL 6.4-8.2 [facility] Sodium [Moles/Vol] 138 mmol/L 136-145 [facility] WBC (Bld) [#/Vol] 7.2 10*3/uL 4.4-11.0 [facility] Blood erythrocytes count (nu mber/volume)Ordered By: Shanice Sharp on 09-05-2023 RBC (Bld) [#/Vol] 5.39 10*6/uL 4.6-6.2 [facility] Blood hemoglobin measurement (mass/volume)Ordered By: Shanice Sharp on 09-05-2023 Hemoglobin (Bld) [Mass/Vol] 15.2 g/dL 13.0-16.5 [facility] Blood lymphocytes/100 leukoc ytesOrdered By: Shanice Sharp on 09-05-2023 Lymphocytes/100 WBC (Bld) 31.2 % 19-41 [facility] Blood monocytes/100 leukocyt esOrdered By: Shanice Sharp on 09-05-2023 Monocytes/100 WBC (Bld) 7.0 % 0-10 [facility] Blood platelet mean volumeOr dered By: Shanice Sharp on 09-05-2023 Platelet mean volume (Bld) [Entitic vol] 8.8 fL 6.2-12.0 [facility] Determination of erythrocyte mean corpuscular volume (MCV)Ordered By: Shanice Sharp on 09-05-2023 MCV (RBC) [Entitic vol] 87.0 fL 80-94 [facility] Erythrocyte sedimentation ra teOrdered By: Shanice Sharp on 09-05-2023 ESR (Bld) [Velocity] 4 mm/h 0-20 [facility] Hematocrit Auto (Bld) [Volum e fraction]Ordered By: Shanicemert Sharp on 09-05-2023 Hematocrit (Bld) [Volume fraction] 46.9 % 40-54 [facility] Laboratory - Chemistry and C hemistry - challengeOrdered By: Shanicemert Sharp on 09-05-2023 ALP [Catalytic activity/Vol] 83 U/L 45-117 [facility] ALT [Catalytic activity/Vol] 21 U/L 16-61 [facility] CO2 [Moles/Vol] 29.0 mmol/L 21.0-32.0 [facility] Globulin (S) [Mass/Vol] 3.8 g/dL 2.2-4.2 [facility] Urea nitrogen/Creatinine [Mass ratio] 11.7 mg/mg 10-20 [facility] Laboratory - Hematology and Cell countsOrdered By: Shanicemert Sharp on 09-05-2023 Erythrocyte distribution width (RBC) [Entitic vol] 39.0 fL 35.1-43.9 [facility] Erythrocyte distribution width (RBC) [Ratio] 12.3 % 11.6-14.6 [facility] Immature granulocytes/100 WBC (Bld) 0.300 % 0.0-0.9 [facility] Comment on above: IG% - Immature Granu locytes (promyelocytes, myelocytes and metamyelocytes) > 1% indicates that a LEFT SHIFT is Present. MCH (RBC) [Entitic mass] 28.2 pg 27.0-32.0 [facility] Nucleated RBC/100 WBC (Bld) [Ratio] 0 % 0-5 [facility] MCHC Auto (RBC) [Mass/Vol]Or dered By: Shanicemert Sharp on 09-05-2023 MCHC (RBC) [Mass/Vol] 32.4 g/dL 32-36 [facility] No Panel InformationOrdered By: Shanice Sharp on 09-05-2023 Estimated GFR (MDRD) Amer 117 mL/min >60 [facility] Comment on above: GFR Calc Estimated GFR (MDRD) Non-Af Amer 96 mL/min >60 [facility] Comment on above: Non- GFR Calc Hepatitis B Surface Antigen Non-Reactive Nonreactive [facility] Hepatitis C Antibody Non-Reactive Nonreactive [facility] Comment on above: Non Reactive: < 0.8 Equivocal: >/= 0.8 to < 1.0 Reactive: >/= 1.0The CDC recommends that a reactive/equivocal HCV antibody result be followed up by the HCV Nucleic Acid Amplificationtest (880727) Platelets bldOrdered By: Awa Sharp on 09-05-2023 Platelets (Bld) [#/Vol] 310 10*3/uL 150-450 [facility] Serum cyclic citrullinated p eptide IgG antibody assay (units/volume)Ordered By: Shanice Sharp on 09-05-2023 Cyclic citrullinated peptide IgG Qn 5 units 0-19 [facility] Comment on above: Negative <20 Weak po sitive 20 - 39 Moderate positive 40 - 59 Strong positive >59Performed at: [facility] Director: Philippe Go PhD, Phone: [phone] Serum hepatitis B virus surf sigrid antibody IgG detectionOrdered By: Shanice Sharp on 09-05-2023 HBV surface IgG Ql (S) Non-Reactive [facility] Comment on above: Non Reactive: Incons istent with immunity less than <10 mIU/mL Reactive: Consistent with immunity greater than or equal to 10 mIU/mL Serum or plasma C reactive p rotein measurement (mass/volume)Ordered By: Shanice Sharp on 09-05-2023 CRP [Mass/Vol] mg/L 0.0-3.0 [facility] Comment on above: C-Reactive Protein ( CRP) provides useful information for thediagnosis, therapy and monitoring of inflammatory processesand associated diseases. For the evaluation of Relative Riskfor Cardiovascular Disease, a High Sensitivity CRP (HSCRP)should be ordered. Serum or plasma albumin rob urement (mass/volume)Ordered By: Shanice Sharp on 09-05-2023 Albumin [Mass/Vol] 4.3 g/dL 3.2-5.0 [facility] Serum or plasma albumin/glob ulin mass ratioOrdered By: Shanice Sharp on 09-05-2023 Albumin/Globulin [Mass ratio] 1.1 {ratio} 0.9-2.4 [facility] Serum or plasma calcium rob urement (mass/volume)Ordered By: Shanice Sharp on 09-05-2023 Calcium [Mass/Vol] 9.1 mg/dL 8.5-10.1 [facility] Serum or plasma creatinine m easurement (mass/volume)Ordered By: Shanice Sharp on 09-05-2023 Creatinine [Mass/Vol] 1.03 mg/dL 0.70-1.30 [facility] Comment on above: The validity of the calculated GFR & GFRAA in patients over 70 years has not been determined. Clinical correlation is essential. Serum or plasma urea nitroge n measurement (mass/volume)Ordered By: Shanice Sharp on 09-05-2023 Urea nitrogen [Mass/Vol] 12 mg/dL 7-18 [facility] Serum rheumatoid factor dete ctionOrdered By: Shanice Sharp on 09-05-2023 Rheumatoid factor Ql (S) < 10.0 IU/mL <15 [facility] Thin prep Papanicolaou smear with manual screeningOrdered By: Shanice Sharp on 09-05-2023 Thin prep Papanicolaou smear with manual screening 10 U/L 15-37 [facility] Thin prep Papanicolaou smear with manual screening 4 5-15 [facility] CCP AB, IgG AND IgA [CCL]on 06-02-2023 CCP AB, IgG AND IgA [CCL] Normal [facility] Comment on above: Result Comment: _CCP AB, IgG AND IgA [CCL]_ SEE SEPARATE REPORT Performed By: #### 2 [id number] #### [facility],[address] [place] [address] MATT BY IFA SCREEN [CCL]on Nuclear Ab IF (S) [Titer] Negative Normal Negative [facility] Comment on above: Result Comment: Anti -nuclear antibody test is used as an aid in diagnosis of systemic autoimmune diseases. Where positive and clinically warranted, follow-up using disease-specific testing is recommended. Low positive titers are not uncommon with advanced age, certain chronic infections, and malignancies among others. Test methodology: Indirect fluorescence immunoassay (IFA) using HEp-2 cells. [address] [address] Joseph Valentin III, M.D. [id number] Performed By: #### 2 02515 #### [facility],[address] [place] [address] RHEUMATOID FACTOR [CCL]on Rheumatoid Factor <10 Normal <16 [facility] Comment on above: Result Comment: [address] [address] Joseph Valentin III, M.D. [id number] Performed By: #### 2 51798 #### [facility],[address] [place] [address] C-REACTIVE PROTEINon 023 CRP [Mass/Vol] mg/L Normal 0.00 - 0.90 [facility] Comment on above: Performed By: #### 2 39060 #### [facility],[address] [place] [address] 139[address] CBC + DIFFon 05-14-2023 Baso # 0.00 x10EE3/UL Normal 0.00 - 0.10 [facility] Comment on above: Performed By: #### 2 23674 #### [facility],[address] [place] [address] Basophils/100 WBC (Bld) 0.5 % Normal 0.0 - 2.0 [facility] Comment on above: Performed By: #### 2 04710 #### [facility],[address] [place] [address] CBC + DIFF Normal [facility] Comment on above: Result Comment: CBC- COMPLETE BLOOD COUNT Performed By: #### 2 77231 #### [address] [address] EO # 0.10 x10EE3/UL Normal 0.00 - 0.50 [facility] Comment on above: Performed By: #### 2 17692 #### [place] [address] Eosinophils/100 WBC (Bld) 1.2 % Normal 0.0 - 7.0 [facility] Comment on above: Performed By: #### 2 00590 #### [place] [address] Erythrocyte distribution width (RBC) [Ratio] 13.4 % Normal 12.0 - 15.6 [facility] Comment on above: Performed By: #### 2 06167 #### [place] [address] Hematocrit (Bld) [Volume fraction] 44.9 % Normal 40.0 - 52.0 [facility] Comment on above: Performed By: #### 2 31558 #### [place] [address] Hemoglobin (Bld) [Mass/Vol] 14.9 g/dL Normal 13.0 - 17.5 [facility] Comment on above: Performed By: #### 2 35160 #### [place] [id number] Lymph # 2.10 x10EE3/UL Normal 0.80 - 2.80 [facility] Comment on above: Performed By: #### 2 12230 #### [place] [id number] Lymphocytes/100 WBC (Bld) 36.7 % Normal 20.0 - 45.0 [facility] Comment on above: Performed By: #### 2 34611 #### [address] [place] [address] MANUAL DIFF N/A Normal [facility] Comment on above: Performed By: #### 2 78029 #### [facility],[address] [place] [address] MCH (RBC) [Entitic mass] 29 pg Normal 27 - 33 [facility] Comment on above: Performed By: #### 2 64748 #### [place] [address] MCHC 33 X10 3 Normal 32 - 36 [facility] Comment on above: Performed By: #### 2 02874 #### [place] [address] MCV (RBC) [Entitic vol] 86 fL Normal 81 - 98 [facility] Comment on above: Performed By: #### 2 53998 #### [place] [address] Hall # 0.40 x10EE3/UL Normal 0.20 - 1.00 [facility] Comment on above: Performed By: #### 2 39321 #### [place] [address] MONOS % 7.6 % Normal 0.0 - 10.0 [facility] Comment on above: Performed By: #### 2 28862 #### [facility],[address] [place] [address] Morphology Nestor (Bld) [Interp] N/A Normal [facility] Comment on above: Performed By: #### 2 74325 #### [place] [address] Neut # 3.20 x10EE3/UL Normal 1.50 - 7.10 [facility] Comment on above: Performed By: #### 2 55992 #### [place] [address] Neutrophils/100 WBC (Bld) 54.0 % Normal 46.0 - 76.0 [facility] Comment on above: Performed By: #### 2 51276 #### [facility],[address] [place] [address] PLATELET 271 x10EE3/UL Normal 150 - 450 [facility] Comment on above: Performed By: #### 2 59017 #### [facility],[address] [place], [place] [address] Platelet mean volume (Bld) [Entitic vol] 6.9 fL Normal 6.4 - 10.5 [facility] Comment on above: Result Comment: AUTO MATED DIFFERENTIAL Performed By: #### 2 40966 #### [facility],[address] [place] [address] RBC 5.23 x 10EE6/UL Normal 4.50 - 6.00 [facility] Comment on above: Performed By: #### 2 40832 #### [facility],[address] [place] [address] WBC 5.8 x 10EE3/UL Normal 4.5 - 10.8 [facility] Comment on above: Performed By: #### 2 54795 #### [facility],[address] [place] [address] SEDRATEon 05-14-2023 SEDRATE 2 mm/hr Normal 0 - 20 [facility] Comment on above: Performed By: #### 2 78021 #### [facility],[address] [place], [place] [id number] CNOVon 09-15-2019 CNOV Office Visit (PEDSWS ) MARK GUERRERO ([id number]) 4 M Date Time Provider Department 10/16/19 2:00 PM KIRSTEN PATEL During your visit today, we recorded the following information about you: Temperature Pulse Respiration Blood pressure 98.3 degrees 60/minute 16/minute 116/70 Weight Height 67.6 kg 1.791 m Kirsten Patel MD 09/16/2019 2:48 PM Signed WELL VISIT PEDIATRIC MALE 14-17 YRS OLD SERVICE DATE: 09/15/2019 SERVICE TIME: 2:00pm Mark is a 19 year old male who presents today for well exam accompanied by his mother. SUBJECTIVE CONCERNS: none HISTORY ACTIVE PROBLEM LIST Acute Glomerulonephritis With Unspecified Pathological Lesion in Kidney - 07/15/2006 PAST MEDICAL HISTORY Diagnosis Date - Abdominal pain, unspecified site PAST SURGICAL HISTORY Procedure Laterality Date - CIRCUMCISION,CLAMP,NE WBORN Allergies: ALLERGIES No Known Allergies Medications: No prescriptions on file. Family History: History reviewed. No pertinent family history. Social History Social History Narrative Not on file Smoking Exposure: Does your child spend a significant amount of time in the care of anyone who smokes? No School: Grade: 12th; grades A-B. Physical Activity: more than 1 hour of physical activity per day Screen Time totaling more than 2 hours of screen time per day. Safety: seat belts and smoke detectors Diet: -Eats 3 meals per day and 1-2 snacks per day -Typical beverages include water, milk and sugar containing beverages -Fruits and vegetables are eaten as snacks -# of fast food meals/week: rare -# of days/week that family has dinner together: 7 Elimination: no concerns, normal size and consistency Dental: dental care current Sleep: -no sleep concerns Yes, cell phone turned off before bedtime- No -8-9 hours of sleep Substance use: none Sexual History: Attraction: female Sexually Active: No REVIEW OF SYSTEMS GENERAL: No fevers EYES: No vision concerns ENT: No hearing concerns RESPIRATORY: Negative for cough, wheezing or respiratory distress CARDIOVASCULAR: Negative for chest pain, syncope, lightheadness or heart racing SKIN: Negative for lesions, rash, and itching ENDOCRINE: No growth concerns HEARING EXAM: Frequency No hearing concerns VISUAL ACUITY: Today's exam: Vision Correction? No vision correction: Eye Care Current COLOR VISION: Normal OBJECTIVE Physical Exam: BP 116/70 Pulse 60 Temp 36.8 ?C (98.3 ?F) (Temporal) Resp 16 Ht 179.1 cm (5' 10.5") Wt 67.6 kg (149 lb) BMI 21.08 kg/m? Blood pressure percentiles are 40 % systolic and 51 % diastolic based on the July 2017 AAP Clinical Practice Guideline. 43 %ile (Z= -0.19) based on CDC (Boys, 2-20 Years) BMI-for-age based on BMI available as of 09/15/2019. Last BMI: Wt: 60.8 kg (134 lb) (50 %, Z= 0.00)* BMI: 27.77 kg/(m2) Last 4 Encounter Wt Readings: Date: Wt: 02/07/2018 60.8 kg (134 lb) (50 %, Z= 0.00)* 04/14/2017 54.9 kg (121 lb) (42 %, Z= -0.21)* 06/30/2014 34.7 kg (76 lb 8 oz) (14 %, Z= -1.08)* 03/16/2010 24 kg (53 lb) (32 %, Z= -0.48)* Last 4 Encounter Ht Readings: Date: Ht: 06/30/2014 148 cm (4' 10.25") (32 %, Z= -0.45)* 02/20/2007 109.9 cm (3' 7.25") (58 %, Z= 0.20)* 07/15/2006 106.7 cm (3' 6") (65 %, Z= 0.40)* General: Well developed, No acute distress Head: normocephalic Eyes: conjunctivae/corneas clear Ears: normal external ear and canal, tympanic membranes with normal landmarks Nose: no erythema or rhinorrhea Oropharynx: moist mucous membranes, no erythema or exudate Neck: Supple, no adenopathy; thyroid symmetric, normal size, no bruits Resp: lungs clear to auscultation Heart: RRR , Normal S1 and S2. , No murmurs Abdomen: Soft, nontender, nondistended, no palpable organomegaly or masses, normal bowel sounds Genitalia: Jerry stage IV, circumcised, testes descended bilaterally Extremities: No clubbing, cyanosis, or edema., No deformities or skin discoloration. Good capillary refill. Full range of motion. Neuro: No focal deficits or abnormal findings present Skin: no rashes, lesions or jaundice ASSESSMENT AND PLAN: Encounter Diagnosis ICD-10-CM 1. Encounter for routine child health examination without abnormal findings Z00.129 2. Encounter for immunization Z23 MENINGOCOCCAL CONJUGATE [id number], IM 43 %ile (Z= -0.19) based on CDC (Boys, 2-20 Years) BMI-for-age based on BMI available as of 09/15/2019. Mark is normal weight (BMI 5th% - 84th%): -To maintain a healthy weight, discussed limiting screen time to less than 2 hours per day, physical activity for at least one hour per day, 5 servings of fruits and vegetables per day, 3 meals per day, family meals ar home and no sugar containing beverages -Ounce of Prevention handout given - Adolescent anticipatory guidance discussed. - Discussed diet and safety. - Dental care discussed. - Bright Futures handout given (See Patient Instructions). - Ounce of Prevention handout given (See Patient Instructions). - Parent/guardian was counseled [id number] by myself (the billing provider) for the following immunizations and vaccine components, including side effects: Menactra. Parent/guardian consents for immunization and understands risks and benefits. A VIS sheet on each immunization was given to the parent/guardian. Parent/guardian declined immunization for HPV and Influenza and were counseled regarding risk. - Follow up in one year for routine physical. SIGNATURE: Kirsten Patel MD PATIENT NAME: Mark Guerrero DATE: September 15, 2019 TIME: 2:07 PM Kirsten Patel MD 09/15/2019 2:25 PM Signed 14-18 years Fueling Your Thoughts ? Are you concerned with your child's eating habits or level of activity? ? Do you and your child eat vegetables every day? ? How many meals do you eat as a family each week? How many are from fast food, take out, etc? ? What beverages do you buy? ? How much time does your child watch TV, play on the computer, play video games, or text daily? ? What do you and your child do to stay active? Nutrition Tips By providing nutritious foods to your child, you help him or her improve strength, energy, attention span and the ability to keep up with friends. ? Breakfast - Eating a healthy breakfast every day is recommended. ? Lunch - Review school menus with your child and plan ahead; or pack a lunch with at least 4 out of the 5 food groups (calcium foods, fruits, vegetables, whole grains and lean protein). ? Snacks - Eat only when hungry. Stock up on [id number] vegetables, fruit, cheese, yogurt, milk, lean meats, whole grains, low sugar cereal or nuts. ? Dinner - Eat as many meals as possible as a family at the dinner table. Be sure to slow down, enjoy, and turn off screens. ? Eating Out - Keep portion sizes small or share meals (don't "super size"). Choose fruit or salad instead of fries, milk instead of soft drinks, baked or broiled instead of fried. ? Beverages - Think Your Drink! ? The best choices are water or milk. ? Limit sweetened beverages such as soft drinks, iced teas, energy drinks and caffeine-containing beverages. ? Regular intake of too much caffeine can lead to trouble sleeping, rapid heart rate, anxiety, poor attention span, headaches or shakiness. Your main job is to offer a variety of healthy foods (fruits, vegetables, milk, yogurt, cheese, whole grains, mere, poultry, fish and eggs). Parents ? Make sure you and your kids are active 60 minutes every day. Focus on FUN, including both organized and free play. ? Count time spent doing chores: car washing, walking the dog, dusting, sweeping, pulling weeds, raking leaves or shoveling snow. ? Involve the whole family in physical activity because you are role models! ? Be a good role model for your kids - be active and eat healthy foods. ? "Screen time" (computers, TV, phones, pedro systems, texting, etc.) should be limited to 2 hours or less daily (pre-plan how "screen time" will be used). ? Screens may be monitored easily if moved to a common area; keep them out of child's bedroom. ? Make sure your child is sleeping at least 10-11 hours per night. Keeping regular bed time is critical to good health and weight management. ? Caffeine can interfere with a healthy sleep routine. ? If you have concerns about your child's weight, physical activity or eating behaviors, ask your healthcare provider. Tips Regarding Teens ? Do not criticize your teenager about their size and shape. Focus on strengths rather than appearance. ? Remember that parents can still influence choices...as a parent you are still the role model! 5 to Go!TM Healthy Kids Inside AND Out 5 Eat FIVE fruits and veggies a day 4 Give and get FOUR compliments a day 3 Consume THREE calcium products a day 2 Limit media time to TWO hours a day 1 Get at least ONE hour of exercise a day 0 Consume ZERO sugar-sweetened drinks Go! Be healthy, inside and out! [email or web address] Where should I go for CARE? [email or web address] here to go PRIMARY CARE -Contact your Primary Care Provider (PCP) if you have any new health concerns. They know your health history best. -Unless you are experiencing a life-threatening emergency, contact your primary care provider first. ? Most offices offer same day appointments ? See your PCP for wellness visits, sports physicals, to monitor chronic health conditions and for acute issues that do not require an emergency department visit. ? Keep any regular appointments that your PCP recommends. [facility] (Patients ages 2 years and up) See a provider live within minutes from the comfort of your home (or work) using your smartphone, tablet or laptop. ? Allergies (seasonal) ? Asthma (adults only) ? Back strains and sprains (adults only) ? Bronchitis (adults only) ? Conjunctivitis (pink eye) ? Cold, cough AND flu symptoms ? Minor sanabria or cuts ? Painful urination and urinary tract infections (adults only) ? Rashes ? Sinus infections ? Upper respiratory illness ? Vaginal symptoms (itching, discharge) ? Minor injuries -Low-cost, [id number] option (insurance may cover) [facility] (Patients ages 2 years and up) When you should head to [facility] ? Cold, cough AND flu symptoms ? Sinus infection ? Earache ? Sore throat ? Conjunctivitis (pink eye) ? Skin rashes (poison kala, ringworm, shingles, scabies, impetigo) ? Minor aches and pains (without serious injury) ? Headaches ? Blood pressure checks ? Urinary tract infections ? Sexually transmitted infections ? Nausea, vomiting ? Diarrhea ? Minor injuries (sprains, strains, minor joint pain) ? Insect bites AND stings (including tick bites) ? Minor sanabria ? Skin injuries not requiring stitches ? Sports physicals -[facility] is not the right choice for wounds needing stitches or excessive bleeding! -Lower-cost option (most insurances are accepted) URGENT CARE (Patients ages 6 months and up) When you should to Urgent Care For any of the 17 types of conditions treated by our [facility] (see panel above), plus: ? Imaging ? Stitches ? EKGs -Physician staffed or transmission and coordination engineer 23/06 -Higher qvd-qf-gtlahp cost (most insurances are accepted) EMERGENCY DEPARTMENT When you need to go to the Emergency Department ? Accidents (falls, car crashes) ? Chest pain ? Coughing up or vomiting blood ? Drug overdose ? Prolonged high fever (not relieved by medication) ? Head injury ? Injuries caused by violence AND major trauma ? Life-threatening conditions ? Loss of consciousness ? Poisoning ? Severe, persistent abdominal pain ? Severe sanabria ? Severe headache ? Shortness of breath ? Stroke symptoms (facial drooping, arm weakness, speech difficulties) ? Suicidal feelings ? Uncontrolled or excessive bleeding -The emergency department is a busy place! Longer wait times are common, If your condition isn't life-threatening, know that your insurance company could deny payment. Consider Express Care or call your primary care physician's office and ask for a same-day appointment. -In an emergency, call 911 or go to the nearest emergency department. -Highest alf-az-nljagq cost Referring Provider: SELF [200] Allergies As of Date: 09/15/2019 (No Known Allergies) Date Reviewed: 09/15/2019 Reviewed by: Kirsten Patel - Fully Assessed Reason for Visit: Physical [83] Cmt: 19 Years Old Primary Visit Diagnosis:Encounter for routine child health examination without abnormal findings [Z00.129] Other Visit Diagnosis:Encounter for immunization [Z23] Order(s):MENINGOCOCCA L CONJUGATE [id number], IM [[id number]] Order #: [id number] Problem List As Of Date 09/15/2019 Noted Resolved ACUTE NEPHRITIS NOS [N00.9] INVALID FOR* Other instructions from your clinician: 14-18 years Fueling Your Thoughts ? Are you concerned with your child's eating habits or level of activity? ? Do you and your child eat vegetables every day? ? How many meals do you eat as a family each week? How many are from fast food, take out, etc? ? What beverages do you buy? ? How much time does your child watch TV, play on the computer, play video games, or text daily? ? What do you and your child do to stay active? Nutrition Tips By providing nutritious foods to your child, you help him or her improve strength, energy, attention span and the ability to keep up with friends. ? Breakfast - Eating a healthy breakfast every day is recommended. ? Lunch - Review school menus with your child and plan ahead; or pack a lunch with at least 4 out of the 5 food groups (calcium foods, fruits, vegetables, whole grains and lean protein). ? Snacks - Eat only when hungry. Stock up on qudyz-nl-yel vegetables, fruit, cheese, yogurt, milk, lean meats, whole grains, low sugar cereal or nuts. ? Dinner - Eat as many meals as possible as a family at the dinner table. Be sure to slow down, enjoy, and turn off screens. ? Eating Out - Keep portion sizes small or share meals (don't super size"). Choose fruit or salad instead of fries, milk instead of soft drinks, baked or broiled instead of fried. ? Beverages - Think Your Drink! ? The best choices are water or milk. ? Limit sweetened beverages such as soft drinks, iced teas, energy drinks and caffeine-containing beverages. ? Regular intake of too much caffeine can lead to trouble sleeping, rapid heart rate, anxiety, poor attention span, headaches or shakiness. Your main job is to offer a variety of healthy foods (fruits, vegetables, milk, yogurt, cheese, whole grains, mere, poultry, fish and eggs). Parents ? Make sure you and your kids are active 60 minutes every day. Focus on FUN, including both organized and free play. ? Count time spent doing chores: car washing, walking the dog, dusting, sweeping, pulling weeds, raking leaves or shoveling snow. ? Involve the whole family in physical activity because you are role models! ? Be a good role model for your kids - be active and eat healthy foods. ? "Screen time" (computers, TV, phones, pedro systems, texting, etc.) should be limited to 2 hours or less daily (pre-plan how "screen time" will be used). ? Screens may be monitored easily if moved to a common area; keep them out of child's bedroom. ? Make sure your child is sleeping at least 10-11 hours per night. Keeping regular bed time is critical to good health and weight management. ? Caffeine can interfere with a healthy sleep routine. ? If you have concerns about your child's weight, physical activity or eating behaviors, ask your healthcare provider. Tips Regarding Teens ? Do not criticize your teenager about their size and shape. Focus on strengths rather than appearance. ? Remember that parents can still influence choices...as a parent you are still the role model! 5 to Go!TM Healthy Kids Inside AND Out 5 Eat FIVE fruits and veggies a day 4 Give and get FOUR compliments a day 3 Consume THREE calcium products a day 2 Limit media time to TWO hours a day 1 Get at least ONE hour of exercise a day 0 Consume ZERO sugar-sweetened drinks Go! Be healthy, inside and out! [email or web address] Where should I go for CARE? [email or web address] here to go PRIMARY CARE -Contact your Primary Care Provider (PCP) if you have any new health concerns. They know your health history best. -Unless you are experiencing a life-threatening emergency, contact your primary care provider first. ? Most offices offer same day appointments ? See your PCP for wellness visits, sports physicals, to monitor chronic health conditions and for acute issues that do not require an emergency department visit. ? Keep any regular appointments that your PCP recommends. EXPRESS CARE ONLINE (Patients ages 2 years and up) See a provider live within minutes from the comfort of your home (or work) using your smartphone, tablet or laptop. ? Allergies (seasonal) ? Asthma (adults only) ? Back strains and sprains (adults only) ? Bronchitis (adults only) ? Conjunctivitis (pink eye) ? Cold, cough AND flu symptoms ? Minor sanabria or cuts ? Painful urination and urinary tract infections (adults only) ? Rashes ? Sinus infections ? Upper respiratory illness ? Vaginal symptoms (itching, discharge) ? Minor injuries -Low-cost, ppl-rq-csdfqb option (insurance may cover) EXPRESS CARE (Patients ages 2 years and up) When you should head to Express Care ? Cold, cough AND flu symptoms ? Sinus infection ? Earache ? Sore throat ? Conjunctivitis (pink eye) ? Skin rashes (poison kala, ringworm, shingles, scabies, impetigo) ? Minor aches and pains (without serious injury) ? Headaches ? Blood pressure checks ? Urinary tract infections ? Sexually transmitted infections ? Nausea, vomiting ? Diarrhea ? Minor injuries (sprains, strains, minor joint pain) ? Insect bites AND stings (including tick bites) ? Minor sanabria ? Skin injuries not requiring stitches ? Sports physicals -Express Care is not the right choice for wounds needing stitches or excessive bleeding! -Lower-cost option (most insurances are accepted) URGENT CARE (Patients ages 6 months and up) When you should to Urgent Care For any of the 17 types of conditions treated by our Express C[facility] (see panel above), plus: ? Imaging ? Stitches ? EKGs -Physician staffed or transmission and coordination engineer 23/06 -Higher jyd-xc-aohnhs cost (most insurances are accepted) EMERGENCY DEPARTMENT When you need to go to the Emergency Department ? Accidents (falls, car crashes) ? Chest pain ? Coughing up or vomiting blood ? Drug overdose ? Prolonged high fever (not relieved by medication) ? Head injury ? Injuries caused by violence AND major trauma ? Life-threatening conditions ? Loss of consciousness ? Poisoning ? Severe, persistent abdominal pain ? Severe sanabria ? Severe headache ? Shortness of breath ? Stroke symptoms (facial drooping, arm weakness, speech difficulties) ? Suicidal feelings ? Uncontrolled or excessive bleeding -The emergency department is a busy place! Longer wait times are common, If your condition isn't life-threatening, know that your insurance company could deny payment. Consider Express Care or call your primary care physician's office and ask for a same-day appointment. -In an emergency, call 911 or go to the nearest emergency department. -Highest oez-ll-kiotbk cost Disposition: Return for Follow-up in one year for routine physical. Follow-up and Disposition History Recorded Questionnaire: PED PHQ 9 1. Feeling down, depressed, irritable or hopeless? -> 0 - Not at All 2. Little interest or pleasure in doing things? -> 0 - Not At All 3. Trouble falling asleep, staying asleep, or sleeping too much? -> 0 - Not At All 4. Poor appetite, weight loss, or overeating? -> 0 - Not At All 5. Feeling tired or little energy? -> 0 - Not At All 6. Feeling bad about yourself-or feeling that you are a failure or that you have let yourself or your family down? -> 0 - Not At All 7. Trouble concentrating on things like school work, reading or watching TV? -> 0 - No- t At All 8. Moving or speaking so slowly that other people could have notices? Or the opposite-being so fidgety or restless that you were moving around a lot more than usual? -> 0 - Not At All 9. Thoughts that you would be better off or of hurting yourself in some way? -> 0 - Not At All 10. In the past year have you felt depressed or sad most days, even if you felt okay sometimes? -> No 11. If you are experiencing any of the problems listed on this questionnaire, how difficult have these problems made it for you to do your work, take care of things at home or get along with other people? -> Not at all difficult 12. Has there been a time in the past month when you have had serious thoughts about ending your life? -> No 13. Have you ever tried to kill yourself or made a suicide attempt? -> No SCORE -> 0 Questionnaire: PED SOCIAL HLTH TOOL In the last 3 months, were you ever worried your food would run out before you could buy more? -> No In the last 12 months, has it been hard for you to pay any of these bills: Utility, Housing, Car, and Medical? -> No Are you worried that in the next 2 months, you may not have stable housing? -> No Do problems getting child and adolescent psychiatrist make it difficult for you to work or study? (leave blank if you do not have children) -> No In the last 12 months, have you needed to see a doctor but could not because of the cost? -> No In the last 12 months, have you ever had to go without health care because you didn?t have a way to get there? -> No Do you ever need help reading hospital materials? -> No Are you afraid you might be hurt in your apartment building or house? -> No If you checked YES to any boxes above, would you like to receive assistance with any of these needs? -> No Are any of your needs urgent? (For example: I don?t have food tonight, I don?t have a place to sleep tonight) -> No Over the past 2 weeks, have you had little interest or pleasure in doing things? -> Not at all Over the past 2 weeks have you felt down, depressed or hopeless? -> Not at all Encounter Status:Closed by KIRSTEN PATEL on 09/16/19 [facility] PROGRESSon 09-15-2019 PROGRESS HNO ID: [id number] Author: Kirsten Patel Service: ? Author Type: Physician Type: Progress Notes Filed: 09/16/2019 2:48 PM Note Text: WELL VISIT PEDIATRIC MALE 14-17 YRS OLD SERVICE DATE: 09/15/2019 SERVICE TIME: 2:00pm Mark is a 19 year old male who presents today for well exam accompanied by his mother. SUBJECTIVE CONCERNS: none HISTORY ACTIVE PROBLEM LIST Acute Glomerulonephritis With Unspecified Pathological Lesion in Kidney - 07/15/2006 PAST MEDICAL HISTORY Diagnosis Date - Abdominal pain, unspecified site PAST SURGICAL HISTORY Procedure Laterality Date - CIRCUMCISION,CLAMP,NE WBORN Allergies: ALLERGIES No Known Allergies Medications: No prescriptions on file. Family History: History reviewed. No pertinent family history. Social History Social History Narrative Not on file Smoking Exposure: Does your child spend a significant amount of time in the care of anyone who smokes? No School: Grade: 12th; grades A-B. Physical Activity: more than 1 hour of physical activity per day Screen Time totaling more than 2 hours of screen time per day. Safety: seat belts and smoke detectors Diet: -Eats 3 meals per day and 1-2 snacks per day -Typical beverages include water, milk and sugar containing beverages -Fruits and vegetables are eaten as snacks -# of fast food meals/week: rare -# of days/week that family has dinner together: 7 Elimination: no concerns, normal size and consistency Dental: dental care current Sleep: -no sleep concerns Yes, cell phone turned off before bedtime- No -8-9 hours of sleep Substance use: none Sexual History: Attraction: female Sexually Active: No REVIEW OF SYSTEMS GENERAL: No fevers EYES: No vision concerns ENT: No hearing concerns RESPIRATORY: Negative for cough, wheezing or respiratory distress CARDIOVASCULAR: Negative for chest pain, syncope, lightheadness or heart racing SKIN: Negative for lesions, rash, and itching ENDOCRINE: No growth concerns HEARING EXAM: Frequency No hearing concerns VISUAL ACUITY: Today's exam: Vision Correction? No vision correction: Eye Care Current COLOR VISION: Normal OBJECTIVE Physical Exam: BP 116/70 Pulse 60 Temp 36.8 ?C (98.3 ?F) (Temporal) Resp 16 Ht 179.1 cm (5' 10.5") Wt 67.6 kg (149 lb) BMI 21.08 kg/m? Blood pressure percentiles are 40 % systolic and 51 % diastolic based on the July 2017 AAP Clinical Practice Guideline. 43 %ile (Z= -0.19) based on CDC (Boys, 2-20 Years) BMI-for-age based on BMI available as of 09/15/2019. Last BMI: Wt: 60.8 kg (134 lb) (50 %, Z= 0.00)* BMI: 27.77 kg/(m2) Last 4 Encounter Wt Readings: Date: Wt: 02/07/2018 60.8 kg (134 lb) (50 %, Z= 0.00)* 04/14/2017 54.9 kg (121 lb) (42 %, Z= -0.21)* 06/30/2014 34.7 kg (76 lb 8 oz) (14 %, Z= -1.08)* 03/16/2010 24 kg (53 lb) (32 %, Z= -0.48)* Last 4 Encounter Ht Readings: Date: Ht: 06/30/2014 148 cm (4' 10.25") (32 %, Z= -0.45)* 02/20/2007 109.9 cm (3' 7.25") (58 %, Z= 0.20)* 07/15/2006 106.7 cm (3' 6") (65 %, Z= 0.40)* General: Well developed, No acute distress Head: normocephalic Eyes: conjunctivae/corneas clear Ears: normal external ear and canal, tympanic membranes with normal landmarks Nose: no erythema or rhinorrhea Oropharynx: moist mucous membranes, no erythema or exudate Neck: Supple, no adenopathy; thyroid symmetric, normal size, no bruits Resp: lungs clear to auscultation Heart: RRR , Normal S1 and S2. , No murmurs Abdomen: Soft, nontender, nondistended, no palpable organomegaly or masses, normal bowel sounds Genitalia: Jerry stage IV, circumcised, testes descended bilaterally Extremities: No clubbing, cyanosis, or edema., No deformities or skin discoloration. Good capillary refill. Full range of motion. Neuro: No focal deficits or abnormal findings present Skin: no rashes, lesions or jaundice ASSESSMENT AND PLAN: Encounter Diagnosis ICD-10-CM 1. Encounter for routine child health examination without abnormal findings Z00.129 2. Encounter for immunization Z23 MENINGOCOCCAL CONJUGATE [id number], IM 43 %ile (Z= -0.19) based on CDC (Boys, 2-20 Years) BMI-for-age based on BMI available as of 09/15/2019. Mark is normal weight (BMI 5th% - 84th%): -To maintain a healthy weight, discussed limiting screen time to less than 2 hours per day, physical activity for at least one hour per day, 5 servings of fruits and vegetables per day, 3 meals per day, family meals ar home and no sugar containing beverages -Ounce of Prevention handout given - Adolescent anticipatory guidance discussed. - Discussed diet and safety. - Dental care discussed. - Bright Futures handout given (See Patient Instructions). - Ounce of Prevention handout given (See Patient Instructions). - Parent/guardian was counseled ovkc-oi-hyig by myself (the billing provider) for the following immunizations and vaccine components, including side effects: Menactra. Parent/guardian consents for immunization and understands risks and benefits. A VIS sheet on each immunization was given to the parent/guardian. Parent/guardian declined immunization for HPV and Influenza and were counseled regarding risk. - Follow up in one year for routine physical. SIGNATURE: Kirsten Patel MD PATIENT NAME: Mark Guerrero DATE: September 15, 2019 TIME: 2:07 PM Normal [facility] Encounters Encounter Date Encounter Type Care Provider Facility Start: 06-21-2025 End: 06-21-[address] Christina Art MD Work Phone: -[facility] Start: 06-21-2025 End: 06-21-[address] Shanice Sharp MD -[facility] [place] Work Phone: Start: 06-21-2025 End: 06-21-2025 ambulatory [facility] Facility:[facility] Start: 03-25-2025 End: 03-25-[address] Shanice Sharp MD -Laboratory [facility] Work Phone: Start: 03-25-2025 End: 03-25-[facility] Start: 12-27-2024 End: 12-27-2024 ambulatory [facility] Facility:[facility] Start: 10-01-2024 End: 10-01-2024 ambulatory [facility] Facility:[facility] Start: 07-06-2024 End: 07-06-2024 ambulatory [facility] Facility:[facility] Start: 02-16-2024 End: 02-16-2024 ambulatory [facility] Work Phone: Start: 02-16-2024 End: 02-16-2024 Patient encounter procedure [facility] [place] Work Phone: Start: 12-22-2023 End: 12-22-2023 ambulatory SHANICE SHARP [facility] Start: 10-22-2023 End: 10-22-2023 ambulatory [facility] Work Phone: Start: 10-22-2023 End: 10-22-2023 Patient encounter procedure [facility] Work Phone: Start: 09-05-2023 End: 09-05-2023 Patient encounter procedure [facility] Work Phone: Start: 05-14-2023 End: 05-14-2023 ambulatory [facility] Payers Date Payer Category Payer Self-pay 2024 Unknown [id number] 2002 Unknown [id number] 2002 Unknown [id number] 2001 Unknown [employer] ANTHEM [address] COMM CHOICE YR [id number] Unknown [id number] Unknown [id number] Unknown [id number] Unknown [id number] Unknown [id number] Social History Date Type [facility]ail [facility] Work Phone: Start: 2002 Sex Assigned At Male [facility] Work Phone: Evaluation note Note Date & Type Note Facility Evaluation note No assessment information availa ble [facility] Work Phone: Reason for referral (narrative) Note Date & Type Note Facility Reason for referral (narrative) No reason for referral information available [facility] Work Phone: Summary Purpose Family History No Family History Records FoundNo Family History Records FoundNo Family History Records Found Advance Directives No Advanced Directives Records FoundNo Advanced Directives Records FoundNo Advanced Directives Records Found Chief Complaint and Reason for Visit Chief Complaint PAIN-COPY PCP Chief Complaint Admit Date S/O- PAIN- COPY PCP March 25, 2025 3:1 9pm S/O- PAIN- COPY PCP June 21, 2025 2:25 pm Additional Source Comments (unrecognized sect ion and content) No Status Records FoundNo Status Records FoundNo Status Records Found INFORMATION SOURCE (unrecogn ized section and content) DATE CREATED AUTHOR 09/16/2019 [facility] DATE CREATED AUTHOR AUTHOR'S ORGANIZ ATION 12/29/2023 [facility] DATE CREATED AUTHOR AUTHOR'S ORGANIZ ATION 06/27/2025 [facility] Care Teams (unrecognized sec tion and content) Team Status: Active Member Role Status Dates Dr. Sly Miner MD Family Provider Active Dr. Christina Art MD Primary Care Provider Active Team Status: Inactive Member Role Status Dates Dr. Christina Art MD Primary Care Provider Active Dr. Shanice Sharp MD Attending Provider, Referring Provider Active Team Status: Active Member Role/Relationship Status Dates Dr. Sly Miner MD Family Provider Active Dr. Christina Art MD Primary Care Provider Active Team Status: Inactive Member Role/Relationship Status Dates Dr. Christina Art MD Primary Care Provider Active Start: March 25, 2025 End: March 25, 2025 Dr. Shanice Sharp MD Attending Provider Active Start: March 25, 2025 End: March 25, 2025 Dr. Shanice Sharp MD Referring Provider Active Start: March 25, 2025 End: March 25, 2025 Team Status: Inactive Member Role/Relationship Status Dates Dr. Christina Art MD Primary Care Provider Active Start: June 21, 2025 End: June 21, 2025 Dr. Shanice Sharp MD Attending Provider Active Start: June 21, 2025 End: June 21, 2025 Dr. Shanice Sharp MD Referring Provider Active Start: June 21, 2025 End: June 21, 2025 Goals (unrecognized section and content) Goals may be documented in a n alternate sectionGoals may be documented in an alternate sectionGoals may be documented in an alternate section FOR RECORDS PERTAINING TO PATIENTS WHO ARE OR HAVE BEEN ENROLLED IN A CHEMICAL DEPENDENCY/SUBSTANCEABUSE PROGRAM, SOME INFORMATION MAY BE OMITTED. This clinical summary was aggregated from multiple sources. Caution should be exercised in using it in the provision of clinical care. This summary normalizes information from multiple sources, and as a consequence, information in this document may materially change the coding, format and clinical context of patient data. In addition, data may be omitted in some cases. CLINICAL DECISIONS SHOULD BE BASED ON THE PRIMARY CLINICAL RECORDS. [employer] provides no warranty or guarantee of the accuracy or completeness of information in this document.
[2025-09-16 18:33] LABS: Hematocrit 43.4 % (40-54); Hemoglobin 14.7 g/dL (13.0-16.5); Immature Granulocytes Count 0.020 X10^3/uL (0.0-0.0); Mean Corp Hgb Conc 33.9 g/dL (32-36); Mean Corpuscular Volume 87.3 fL (80-94); Mean Platelet Vol. 8.8 fl (6.2-12.0); NRBC Flagged by Analyzer 0 % (0-5); Platelet Count 284 K/mm3 (150-450); RBC Distribution Width CV 12.1 % (11.6-14.6); RBC Distribution Width SD 38.6 fl (35.1-43.9); Red Blood Count 4.97 M/mm3 (4.6-6.2); White Blood Count 6.2 K/mm3 (4.4-11.0)
[2025-09-16 18:42] LABS: AST(SGOT) 28 U/L (<=37); Alanine Aminotransfer ALT/SGPT 35 U/L (<=46); Albumin, Serum 4.5 g/dL (3.5-5.0); Alkaline Phosphatase 70 U/L (40-129); Anion Gap 11 (5-15); BUN 10 mg/dL (4-19); BUN/Creat Ratio 10.2 RATIO (10-20); Calcium,Total 9.1 mg/dL (7.6-11.0); Carbon Dioxide 27.2 mmol/L (21.0-32.0); Chloride 102 mmol/L (98-108); Globulin 2.4 g/dL (2.2-4.2); Glucose 92 mg/dL (70-99); Potassium 3.8 mmol/L (3.3-5.1)
== END | disposition home or self-care (01) ==
PROVIDERS: PCP Family Medicine; Referring Provider Internal Medicine Rheumatology; Visit Provider Internal Medicine Rheumatology
DX: M06.4 Inflammatory polyarthropathy (principal); Z79.899 Other long term (current) drug therapy
CPT/HCPCS: 36415; 80053; 85025